=== PATIENT | female | born 1940 | race Caucasian/White ===

== ENCOUNTER 2021-05-07 11:21 | Emergency (ER) | payer OTHER ==
--- OUTSIDE RECORDS SUMMARY | 2021-05-07 11:24 | XMS REPORT | Continuity of Care Document ---
:1940 Author Organization [facility] t Address [address] [place] [address] Care Team Providers Name Role Phone Unavailable Unavailable Unavailable Problems This patient has no known problems. Allergies, Adverse Reactions, Alerts This patient has no known allergies or adverse reactions. Medications Ordered Filled Start Stop Current Ordering Indication Dosage Frequency Signature Comments Components Source Medication Medication Date Date Medication? Clinician (SIG) Name Name Prozac Prozac 2019-0 Yes Gisel [address] [facility] 7-22 [facility] - [facility] Calcium 600 Calcium 600 Yes Gisel [address] [facility] + D + D Millender with a [facility] - meal [facility] Multivitami Multivitami Yes Gisel [address] [facility] n n [facility] Immunizations Ordered Filled Immunization Date Status Comments Sourc e Immunization Name Name FLUZONE HIGH DOSE FLUZONE HIGH DOSE 2019-05-[address] [facility] - [facility] OVER [facility] 00:00:00 [facility] Procedures This patient has no known procedures. Encounters Start End Encounter Admission Attending Care Care Encounter Source Date/Time Date/Time Type Type Clinicians Facility Department ID 2021-04-19 2021-04-19 Outpatient [facility] [id number] [facility] 2021-04-14 2021-04-14 [facility] [id number] [facility] 2021-04-13 2021-04-13 [facility] [id number] [facility] 2020-12-02 2020-12-02 [facility] [id number] [facility] 2020-12-02 2020-12-02 [facility] [id number] [facility] 2020-07-28 2020-07-28 [facility] [id number] [facility] 2020-07-08 2020-07-08 [facility] [id number] [facility] 2020-06-24 2020-06-24 [facility] [id number] [facility] 2020-06-23 2020-06-23 [facility] [id number] [facility] 2020-06-23 2020-06-23 [facility] [id number] [facility] 2020-06-02 2020-06-02 [facility] [id number] [facility] 2020-05-24 2020-05-24 [facility] [id number] [facility] 2020-05-19 2020-05-19 [facility] [id number] [facility] 2020-05-19 2020-05-19 [facility] [id number] [facility]00 [facility] Outpat[facility] Clinics 2020-03-18 2020-03-18 [facility] [id number] [facility] 01[facility]27:00 01:27:00 [facility] Outpat[facility] ent Clinics 2020-03-17 2020-03-17 [facility] [id number] [facility] 10:00:00 10:00:00 [facility] Medicine Outpat[facility] ent Clinics 2019-12-11 2019-12-11 [facility] [id number] [facility] 10:00[facility]00 10:00:00 [facility] Out[facility] ent Clinics 2019-06-11 2019-06-11 [facility] [id number] [facility] 10:00[facility]00 10:00:00 [facility] Out[facility] Clinics 2019-05-27 2019-05-27 [facility] [id number] [facility] 11:20:00 11:20:00 [facility] Out[facility] Clinics Results This patient has no known results.
--- NOTE | 2021-05-07 12:12 | RAD REPORT ---
EXAM DESCRIPTION: CT - Head Brain Wo Cont - 05/07/2021 11:56 am CLINICAL HISTORY: fall, head injury, left hoahaoism COMPARISON: No comparisons TECHNIQUE: All CT scans are performed using dose optimization technique as appropriate and may inclu de automated exposure control or mA/KV adjustment according to patient size. FINDINGS: No intracranial hemorrhage, hydrocephalus or extra-axial fluid collection.No areas of brai n edema or evidence of midline shift. Chronic small vessel ischemic changes cerebral atrophy. The paranasal sinuses and mastoids are clear. The calvarium is intact. IMPRESSION: No acute intracranial abnormality.
--- NOTE | 2021-05-07 12:16 | EDPHYS ---
Physician Documentation [facility] Name: Wendy Maria Age: 80 yrs Sex: Female : 1940 Arrival Date: 05/07/2021 Time: 11:23 Bed 15 Private MD: ED Physician Dakota Ayala HPI: 05/07 11:27 This 80 yrs old Female presents to ER via Unassigned with complaints of Fall, rn head injury. 11:27 The patient or guardian reports injury, pain, swelling. The complaints affect the left rn judaism. Onset: The symptoms/episode began/occurred just prior to arrival. Associated signs and symptoms: Loss of consciousness: This patient did not experience any loss of consciousness. Pertinent positives: headache, Pertinent negatives: double vision, nausea, neck pain, seizure, shortness of breath, vomiting, weakness in extremities, generalized weakness. Severity of symptoms: At their worst the symptoms were mild, in the emergency department the symptoms have improved. The patient has not experienced similar symptoms in the past. The patient has not recently seen a physician. Patient reports walking in the kitchen today, tripped, struck left side of head on floor, no LOC, no anticoagulation. Denies other injuries. Ambulatory after the fall.. 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 - Social history:: Smoking status: Patient denies any tobacco usage or history of. - Family history:: not pertinent. - Hospitalizations: : No recent hospitalization is reported. ROS: 11:27 Constitutional: Negative for fever, chills, and weight loss, Eyes: Negative for injury, rn pain, redness, and discharge, ENT: Negative for injury, pain, and discharge, Neck: Negative for injury, pain, and swelling, Cardiovascular: Negative for chest pain, palpitations, and edema, Respiratory: Negative for shortness of breath, cough, wheezing, and pleuritic chest pain, Abdomen/GI: Negative for abdominal pain, nausea, vomiting, diarrhea, and constipation, Back: Negative for injury and pain, : Negative for injury, bleeding, discharge, and swelling, MS/Extremity: Negative for injury and deformity, Skin: Positive for bruising to left judaism Neuro: Positive for headache 11:27 All other systems are negative. Exam: 11:27 Constitutional: This is a well developed, well nourished patient who is awake, alert, rn and in no acute distress. Head/Face: Normocephalic, ecchymosis and mild tenderness over left judaism. No laceration. No skull depression noted. Eyes: Periorbital areas with no swelling, redness, or edema. Neck: No midline tenderness, full range of motion. Chest/axilla: Normal chest wall appearance and motion. Nontender with no deformity. Cardiovascular: Regular rate and rhythm. No pulse deficits. Respiratory: Speaking full sentences, unlabored. No increased work of breathing, no retractions or nasal flaring. Abdomen/GI: Soft, non-tender Back: No spinal tenderness. Skin: Warm, dry with normal turgor. Normal color with no rashes, no lesions, and no evidence of cellulitis. MS/ Extremity: Pulses equal, no cyanosis. Neurovascular intact. Full, normal range of motion. Equal circumference. Neuro: Awake and alert, GCS 15, oriented to person, place, time, and situation. Cranial nerves II-XII grossly intact. Motor strength 5/5 in all extremities. Sensory grossly intact. Ambulatory from EMS stretcher into ER stretcher. Vital Signs: 11:27 Pain 3/10; ss 11:29 BP 150 / 81; Pulse 71; Resp 16; Temp 98.1(TE); Pulse Ox 98% ; Pain 3/10; ss [place] Coma Score: 11:27 Eye Response: spontaneous(4). Verbal Response: oriented(5). Motor Response: obeys rn commands(6). Total: 15. 12:14 Eye Response: spontaneous(4). Verbal Response: oriented(5). Motor Response: obeys rn commands(6). Total: 15. MDM: 11:23 Patient medically screened. rn 12:14 Differential diagnosis: Contusion of Hematoma on Intracranial bleed- Concussion rn cerebral contusion. Data reviewed: vital signs, nurses notes, radiologic studies, CT scan, and as a result, I will discharge patient. Counseling: I had a detailed discussion with the patient and/or guardian regarding: the historical points, exam findings, and any diagnostic results supporting the discharge/admit diagnosis, radiology results, the need for outpatient follow up, to return to the emergency department if symptoms worsen or persist or if there are any questions or concerns that arise at home. Special discussion: Based on the patient's history, exam and DX evaluation, there is no indication for emergent intervention or inpatient [place]. It is understood by the patient/guardian that if the SXs persist or worsen they need to return immediately for re-evaluation. I discussed with the patient/guardian in detail that at this point there is no indication for admission to the hospital. It is understood, however, that if the symptoms persist or worsen the patient needs to return immediately for re-evaluation. ED course: No acute findings on CT head. Stable vitals. Normal exam. Will DC home and family's care.. 05/07 11:24 Order name: CT Head Brain wo Cont; Complete Time: 12:14 rn Administered Medications: No medications were administered Disposition Summary: 05/07/21 12:15 Discharge Ordered Location: Home rn Problem: new rn Symptoms: have improved rn Condition: Stable rn Diagnosis - Unspecified injury of head, initial encounter rn Followup: rn - With: Private Physician - When: As needed - Reason: Recheck today's complaints, Re-evaluation by your physician Discharge Instructions: - Discharge Summary Sheet rn - Head Injury, Adult rn Forms: - Medication Reconciliation Form rn - Thank You Letter rn - Antibiotic yarn packer - Prescription Opioid Use rn Signatures: Dispatcher [employer] Dakota Whitney MD MD rn Smirch, Shelby, RN RN
--- NOTE | 2021-05-07 12:16 | ER ---
Nurse's Notes [facility] Name: Wendy Maria Age: 80 yrs Sex: Female : 1940 Arrival Date: 05/07/2021 Time: 11:23 Bed 15 Private MD: Diagnosis: Unspecified injury of head, initial encounter Presentation: 05/07 11:27 Chief complaint: Patient states: Tripped and fell while walking in the kitchen ss approximately 30 minutes prior to arrival. Small bruised area noted to lateral aspect of L eye. Pt reports minimal pain. Denies LOC. Coronavirus screen: Client denies travel out of the [place] in the last 14 days. Ebola Screen: Patient denies exposure to infectious person. Patient denies travel to an Ebola-affected area in the 21 days before illness onset. Initial Sepsis Screen: Does the patient meet any 2 criteria? No. Patient's initial sepsis screen is negative. Does the patient have a suspected source of infection? No. Patient's initial sepsis screen is negative. Risk Assessment: Do you want to hurt yourself or someone else? Patient reports no desire to harm self or others. Onset of symptoms was May 07, 2021. 11:27 Method Of Arrival: EMS: [facility] ss 11:27 Acuity: RICHARD 4 ss Triage Assessment: 12:30 General: Appears in no apparent distress. Behavior is calm. 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 - Social history:: Smoking status: Patient denies any tobacco usage or history of. - Family history:: not pertinent. - Hospitalizations: : No recent hospitalization is reported. Screenin:00 Abuse screen: Denies threats or abuse. Denies injuries from another. Nutritional zb screening: No deficits noted. Tuberculosis screening: No symptoms or risk factors identified. Fall Risk Fall in past 12 months (25 points). Secondary diagnosis (15 points) impaired mobility, No IV (0 pts). Ambulatory Aid- None/Bed Rest/Nurse Assist (0 pts). Gait- Normal/Bed Rest/Wheelchair (0 pts) Mental Status- Oriented to own ability (0 pts). Total Kellogg Fall Scale indicates Low Risk Score (25-44 pts). Fall prevention measures have been instituted. Side Rails Up X 2 Placed close to Nursing Station Frequent Obs/Assesments occuring Family Present and informed to notify staff if they need to leave bedside As available Patient and Family Educated on Fall Prevention Program and strategies. Assessment: 12:10 General: Appears in no apparent distress. Behavior is calm. Pain: Complains of pain in zb left restoration Pain currently is 1 out of 10 on a pain scale. Quality of pain is described as tender. Neuro: Level of Consciousness is awake, alert, obeys commands, Oriented to person, place, time, situation, Moves all extremities. Full function Gait is unsteady. Cardiovascular: Patient's skin is warm and dry. Respiratory: Airway is patent. Derm: Bruising that is dark purple, on left restoration. Musculoskeletal: Range of motion: intact in all extremities, Swelling present in left restoration. Vital Signs: 11:27 Pain 3/10; ss 11:29 BP 150 / 81; Pulse 71; Resp 16; Temp 98.1(TE); Pulse Ox 98% ; Pain 3/10; ss [place] Coma Score: 11:27 Eye Response: spontaneous(4). Verbal Response: oriented(5). Motor Response: obeys rn commands(6). Total: 15. 12:14 Eye Response: spontaneous(4). Verbal Response: oriented(5). Motor Response: obeys rn commands(6). Total: 15. ED Course: 11:23 Patient arrived in ED. rn 11:23 Dakota Ayala MD is Attending Physician. rn 11:24 Brittney Curry, SHERI is Primary Nurse. ll1 11:24 Arm band placed on Patient placed in an exam room, on a stretcher. ll1 11:28 Triage completed. ss 11:56 CT Head Brain wo Cont In Process Unspecified. EDMS 12:00 Patient has correct armband on for positive identification. Adult w/ patient. Pulse ox zb on. NIBP on. Door closed. Noise minimized. 12:20 No provider procedures requiring assistance completed. Patient did not have IV access zb during this emergency room visit. Administered Medications: No medications were administered Outcome: 12:15 Discharge ordered by . rn 12:30 Discharged to home via wheelchair, with family. zb 12:30 Condition: stable 12:30 Discharge instructions given to patient, family, Instructed on discharge instructions, follow up and referral plans. Demonstrated understanding of instructions, follow-up care. 12:54 Patient left the ED. ll1 Signatures: Dispatcher [employer] EDMS Dakota Ayala MD MD rn Smirch, Shelby, RN RN Brittney Brumfield RN RN ll1 Toña Cason RN RN zb
[2021-05-07 12:58] VITALS: BP 150/81; TEMP 98.1; O2SAT 98
== END 2021-05-07 12:54 | disposition home or self-care (01) ==
LOC: ER 11:21
DX: S00.83XA Contusion of other part of head, initial encounter (principal); W01.0XXA Fall on same level from slipping, tripping and stumbling without subsequent striking against object, initial encounter
CPT/HCPCS: 70450; 99283

== ENCOUNTER 2021-05-08 21:49 | Emergency (ER) | payer OTHER ==
--- OUTSIDE RECORDS SUMMARY | 2021-05-08 21:52 | XMS REPORT | Continuity of Care Document ---
:1940 Author Organization [facility] t Address [address] [place] [address] Care Team Providers Name Role Phone Unavailable [...] [facility] - 00:00: [facility] 00 [facility] ent Clinics Calcium 600 Calcium 600 Yes Gisel [address] [facility] + D + D Millender with a [facility] - meal [facility]ics Multivitami Multivitami Yes Gisel [address] [facility] n n [facility] Immunizations Ordered Filled Immunization Date Status Comments Sourc e Immunization Name Name FLUZONE HIGH DOSE FLUZONE HIGH DOSE 2019-05-[address] [facility] - [facility] OVER [facility] 00:00:00 [facility] Procedures This patient has no known procedures. Encounters Start End Encounter Admission Attending Care Care Encounter Source Date/Time Date/Time Type Type Clinicians Facility Department ID 2021-04-19 2021-04-19 [facility] [id number] [facility] 2021-04-14 2021-04-14 Out[facility] [id number] [facility] 2021-04-13 2021-04-13 [facility] [id number] [facility] 2020-12-02 2020-12-02 [facility] [id number] [facility] 2020-12-02 2020-12-02 [facility] [id number] [facility] 2020-07-28 2020-07-28 [facility] [id number] [facility] 2020-07-08 2020-07-08 Out[facility] [id number] [facility] 2020-06-24 2020-06-24 [facility] [id number] [facility] 2020-06-23 2020-06-23 [facility] [id number] [facility] 2020-06-23 2020-06-23 [facility] [id number] [facility] 2020-06-02 2020-06-02 [facility] [id number] [facility] 2020-05-24 2020-05-24 [facility] [id number] [facility] 2020-05-19 2020-05-19 [facility] [id number] [facility] 2020-05-19 2020-05-19 [facility] [id number] [facility]00 [facility] Outpat[facility] Clinics 2020-03-18 2020-03-18 [facility] [id number] [facility] 01:27:00 01:27:00 [facility] Outpat[facility] Clinics 2020-03-17 2020-03-17 [facility] [id number] [facility] 10:00:00 10:00:00 [facility] Out[facility] Clinics 2019-12-11 2019-12-11 [facility] [id number] [facility] 10:00:00 10:00:00 [facility] Out[facility] Clinics 2019-06-11 2019-06-11 [facility] [id number] [facility] 10:00:00 10:00:00 [facility] Out[facility] ent Clinics 2019-05-27 2019-05-27 [facility] [id number] [facility] 11:20:00 11:20:00 [facility] Out[facility] ent Clinics Results This patient has no known results.
--- NOTE | 2021-05-08 23:35 | EDPHYS ---
Physician Documentation [facility] Name: Wendy Maria Age: 80 yrs Sex: Female : 1940 Arrival Date: 05/08/2021 Time: 21:58 Bed 26 Private MD: ED Physician Fernie Ferreira HPI: 05/09 05:45 This 80 yrs old Female presents to ER via EMS with complaints of Fall Injury. tw4 05:45 Details of fall: The patient fell from an upright position, while walking. Onset: The tw4 symptoms/episode began/occurred just prior to arrival. Associated injuries: The patient sustained injury to the head. Associated injuries: The patient sustained injury to the head, abrasion, hematoma, laceration, 2 cm(s). Severity of symptoms: At their worst the symptoms were mild, in the emergency department the symptoms are unchanged. The patient has experienced similar episodes in the past, a few times. 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 - Immunization history:: Adult Immunizations up to date. - Social history:: Smoking status: Patient denies any tobacco usage or history of. - Immunization history: Last tetanus immunization: - up to date. ROS: 05/09 05:45 Constitutional: Negative for fever, chills, and weight loss, Eyes: Negative for injury, tw4 pain, redness, and discharge, Cardiovascular: Negative for chest pain, palpitations, and edema, Respiratory: Negative for shortness of breath, cough, wheezing, and pleuritic chest pain, Abdomen/GI: Negative for abdominal pain, nausea, vomiting, diarrhea, and constipation, Back: Negative for injury and pain, MS/Extremity: Negative for injury and deformity, Skin: Negative for injury, rash, and discoloration, Neuro: Negative for headache, weakness, numbness, tingling, and seizure. Exam: 05:45 Constitutional: This is a well developed, well nourished patient who is awake, alert, tw4 and in no acute distress. 05:45 Chest/axilla: Normal chest wall appearance and motion. Nontender with no deformity. No lesions are appreciated. Cardiovascular: Regular rate and rhythm with a normal S1 and S2. No gallops, murmurs, or rubs. Normal PMI, no JVD. No pulse deficits. Respiratory: Lungs have equal breath sounds bilaterally, clear to auscultation and percussion. No rales, rhonchi or wheezes noted. No increased work of breathing, no retractions or nasal flaring. Abdomen/GI: Soft, non-tender, with normal bowel sounds. No distension or tympany. No guarding or rebound. No evidence of tenderness throughout. Back: No spinal tenderness. No costovertebral tenderness. Full range of motion. MS/ Extremity: Pulses equal, no cyanosis. Neurovascular intact. Full, normal range of motion. Neuro: Awake and alert, GCS 15, oriented to person, place, time, and situation. Cranial nerves II-XII grossly intact. Motor strength 5/5 in all extremities. Sensory grossly intact. Cerebellar exam normal. Normal gait. 05:45 Head/face: Noted is a laceration(s), that is linear, 2 cm(s). Vital Signs: 05/08 22:00 BP 152 / 80; Pulse 80; Resp 18; Temp 99.0; Pulse Ox 99% on R/A; Weight 65.77 kg; Height wg 5 ft. 5 in. (165.10 cm); Pain 0/10; 22:30 BP 160 / 85; Pulse 67; Resp 20; Pulse Ox 97% ; kg 22:45 BP 158 / 84; Pulse 67; Resp 20; Pulse Ox 99% on R/A; kg 23:30 BP 158 / 92; Pulse 72; Resp 20; Pulse Ox 99% on R/A; kg 22:00 Body Mass Index 24.13 (65.77 kg, 165.10 cm) Ozark Coma Score: 22:00 Eye Response: spontaneous(4). Verbal Response: confused(4). Motor Response: obeys wg commands(6). Total: 14. 23:00 Eye Response: spontaneous(4). Verbal Response: confused(4). Motor Response: obeys kg commands(6). Total: . 05/09 00:00 Eye Response: spontaneous(4). Verbal Response: confused(4). Motor Response: obeys kg commands(6). Total: 14. Trauma Score (Adult): 05/08 22:00 Eye Response: spontaneous(1); Verbal Response: confused(1); Motor Response: obeys wg commands(2); Systolic BP: > 89 mm Hg(4); Respiratory Rate: 10 to 29 per min(4); Ozark Score: 14; Trauma Score: 12 Laceration: 05/09 05:45 Wound Repair of 2cm ( 0.8in ) subcutaneous laceration to left parietal area. Distal tw4 neuro/vascular/tendon intact. Anesthesia: Local anesthetic administered with 1% lidocaine. Wound prep: Simple cleansing by nurse. Skin closed with 1 1[employer] using simple sutures and sterile technique. Patient tolerated well. MDM: 05/08 23:34 Patient medically screened. tw4 05/09 05:45 Differential diagnosis: abrasion, closed head injury, contusion. Data reviewed: vital tw4 signs, nurses notes. Data interpreted: Pulse oximetry: Interpretation: normal. Counseling: I had a detailed discussion with the patient and/or guardian regarding: the historical points, exam findings, and any diagnostic results supporting the discharge/admit diagnosis. Special discussion: I discussed with the patient/guardian in detail that at this point there is no indication for admission to the hospital. It is understood, however, that if the symptoms persist or worsen the patient needs to return immediately for re-evaluation. 05/08 22:09 Order name: Glucose, Ancillary Testing EDMS 05/08 22:03 Order name: CT Head C Spine tw4 Administered Medications: No medications were administered Disposition Summary: 05/08/21 23:34 Discharge Ordered Location: Home tw4 Problem: new tw4 Symptoms: have improved tw4 Condition: Stable tw4 Diagnosis - Contusion of other part of head tw4 - History of falling tw4 - Repeated falls tw4 Followup: tw4 - With: Private Physician - When: Upon discharge from the Emergency Department - Reason: Recheck today's complaints, Continuance of care, Re-evaluation by your physician Discharge Instructions: - Discharge Summary Sheet tw4 - Contusion tw4 - Facial or Scalp Contusion tw4 - Head Injury, Adult tw4 - Fall Prevention in the Home, Adult tw4 - Understanding Your Risk for Falls tw4 Forms: - Medication Reconciliation Form tw4 - Thank You Letter tw4 - Antibiotic Education tw4 - Prescription Opioid Use tw4 Signatures: Dispatcher [employer] Fernie Basurto MD MD tw4 Paris Giordano, SHERI RN Shawn Paulino RN
--- NOTE | 2021-05-08 23:35 | ER ---
Nurse's Notes [facility] Name: Wendy Maria Age: 80 yrs Sex: Female : 1940 Arrival Date: 05/08/2021 Time: 21:58 Bed 26 Private MD: Diagnosis: Contusion of other part of head;History of falling;Repeated falls Presentation: 05/08 21:59 Chief complaint: Patient states: Per EMS, patient fell while walking at home. States wg she slipped on slippery tile in her socks and suffered a small LAC to the back of her head. Fall was witnessed by and there was no LOC. Pt was seen in the ER yesterday for similar episode and discharged. Pt has a hx of dementia and is pleasantly confused to her baseline. EMS stated patient is not on blood thinners. States bruises to face were old and from yesterday's fall. Pt states she didn't remember falling and is confused to place and time. Care prior to arrival: None. Mechanism of Injury: Fall from standing position. 21:59 Acuity: RICHARD 3 wg 21:59 Method Of Arrival: EMS: [facility] 05/09 00:17 Coronavirus screen: At this time, the client does not indicate any symptoms associated kg with coronavirus-19. Ebola Screen: Patient negative for fever greater than or equal to 101.5 degrees Fahrenheit, and additional compatible Ebola Virus Disease symptoms Patient denies exposure to infectious person. Patient denies travel to an Ebola-affected area in the 21 days before illness onset. Initial Sepsis Screen: Does the patient meet any 2 criteria? No. Patient's initial sepsis screen is negative. Does the patient have a suspected source of infection? No. Patient's initial sepsis screen is negative. Risk Assessment: Do you want to hurt yourself or someone else? Patient reports no desire to harm self or others. Onset of symptoms. 00:19 Trauma event details: Injury occurred in the [facility], Injury occurred: at kg home. Injury occurred: May 08, 2021. 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 - Immunization history:: Adult Immunizations up to date. - Social history:: Smoking status: Patient denies any tobacco usage or history of. - Immunization history: Last tetanus immunization: - up to date. Screenin:49 Abuse screen: Denies threats or abuse. Denies injuries from another. Nutritional kg screening: No deficits noted. Tuberculosis screening: No symptoms or risk factors identified. Fall Risk None identified. Primary Survey: 22:30 NO uncontrolled hemorrhage observed. A: The patient is alert. Airway: patent. kg Breathing/Chest: Respiratory pattern: regular, Respiratory effort: spontaneous, unlabored, Breath sounds: clear, Chest inspection: symmetrical rise and fall of the chest. Circulation: Cardiac rhythm: sinus rhythm. Disability Alert. Exposure/Environment: All clothing and personal items were removed. Forensic evidence collection is not deemed to be indicated at this time. Items placed in patient belonging bag. 23:30 Reassessment Airway Airway Patent Breathing/Chest Respiratory pattern Regular kg Circulation Heart rhythm Sinus rhythm Disability Alert. Assessment: 22:02 General: Appears in no apparent distress. well groomed, Behavior is calm, cooperative. wg Pain: Denies pain. Neuro: Level of Consciousness is alert, confused, Oriented to person, Fruit Worker are equal bilaterally Moves all extremities. Speech is normal, Facial symmetry appears normal, Pupils are PERRLA. 22:03 EENT: No deficits noted. Cardiovascular: No deficits noted. Respiratory: No deficits wg noted. GI: No deficits noted. : No deficits noted. Derm: Wound noted back of scalp. Musculoskeletal: No deficits noted. Injury Description: Laceration sustained to scalp. Vital Signs: 22:00 BP 152 / 80; Pulse 80; Resp 18; Temp 99.0; Pulse Ox 99% on R/A; Weight 65.77 kg; Height 5 ft. 5 in. (165.10 cm); Pain 0/10; 22:30 BP 160 / 85; Pulse 67; Resp 20; Pulse Ox 97% ; kg 22:45 BP 158 / 84; Pulse 67; Resp 20; Pulse Ox 99% on R/A; kg 23:30 BP 158 / 92; Pulse 72; Resp 20; Pulse Ox 99% on R/A; kg 22:00 Body Mass Index 24.13 (65.77 kg, 165.10 cm) wg Rivera Coma Score: 22:00 Eye Response: spontaneous(4). Verbal Response: confused(4). Motor Response: obeys wg commands(6). Total: 14. 23:00 Eye Response: spontaneous(4). Verbal Response: confused(4). Motor Response: obeys kg commands(6). Total: 14. 05/09 00:00 Eye Response: spontaneous(4). Verbal Response: confused(4). Motor Response: obeys kg commands(6). Total: 14. Trauma Score (Adult): 05/08 22:00 Eye Response: spontaneous(1); Verbal Response: confused(1); Motor Response: obeys wg commands(2); Systolic BP: > 89 mm Hg(4); Respiratory Rate: 10 to 29 per min(4); Brew[place] Score: 14; Trauma Score: 12 ED Course: 21:58 Patient arrived in ED. vg1 22:02 Triage completed. wg 22:02 Patient has correct armband on for positive identification. wg 22:03 Fernie Ferreira MD is Attending Physician. tw4 22:10 Arm band placed on right wrist. kg 22:20 Paris Giordano, RN is Primary Nurse. kg 22:20 Thermoregulation: warm blanket given to patient. kg 22:49 CT Head C Spine In Process Unspecified. EDMS 22:49 No provider procedures requiring assistance completed. kg 05/09 00:18 Patient did not have IV access during this emergency room visit. kg 00:18 Patient maintains SpO2 saturation greater than 95% on room air. kg Administered Medications: No medications were administered Intake: 00:18 PO: 0ml; Total: 0ml. kg Output: 00:18 Urine: 0ml; Total: 0ml. kg Outcome: 05/08 23:34 Discharge ordered by . tw4 05/09 00:16 Discharged to home via wheelchair, with family. kg Condition: improved Discharge instructions given to patient, family, Instructed on discharge instructions, follow up and referral plans. Demonstrated understanding of instructions, follow-up care. 00:18 Patient's length of stay was not longer than 2 hours. kg 00:41 Patient left the ED. kg Signatures: Dispatcher [employer] Fernie Basurto MD MD tw4 Barb Maldonado RN RN vg1 Paris Giordano RN RN kg Shawn Maldonado RN wg
[2021-05-09 01:02] VITALS: TEMP 99
[2021-05-09 01:05] VITALS: O2SAT 99
[2021-05-09 01:06] VITALS: BP 158/92
--- NOTE | 2021-05-09 09:11 | RAD REPORT ---
EXAM DESCRIPTION: CT - Head C Spine Mpr Wo Con - 05/09/2021 5:22 am CLINICAL HISTORY: PAIN COMPARISON: 02/28/2020 TECHNIQUE: Axial CT of the head obtained from the skull apex to the skull base without contrast. Axi al CT images of the cervical spine obtained from the skull base through the thoracic inlet. Sagittal and coronal reformatted images available. This exam was performed according to our departmental dose- optimization program, which includes automated exposure control, adjustment of the mA and/or kV accor ding to patient size and/or use of iterative reconstruction technique. FINDINGS: CT head: No acute intracranial hemorrhage identified. No mass, mass effect, shift of the midline, abnormal ext ra-axial fluid collection or CT evidence of acute ischemic change identified. Moderate enlargement of the ventricular system and sulcal spaces compatible with cerebral atrophy. Confluent areas of hypo density throughout the supratentorial white matter are nonspecific and may be related to chronic smal l vessel ischemic change. The visualized paranasal sinuses and the mastoids are clear. Contusion/laceration in the posterior sc alp soft tissues. No skull fracture identified. Visualized orbits and globes are unremarkable. Athe rosclerotic calcification of the intracranial internal carotid arteries. Cervical CT: Alignment of the cervical spine is maintained without evidence of subluxation. The atlantoaxial, at lantodental, and occipitoatlantal intervals are preserved. No fracture identified. Vertebral body h eight preserved. Prevertebral soft tissues are unremarkable. Mild multilevel loss of intervertebral disc height with endplate spondylosis, uncovertebral spurring, and facet arthropathy throughout the cervical spine. Visualized skull base is intact. No fracture of the visualized facial bones. Visualized mastoid air c ells and paranasal sinuses are well aerated. Visualized thyroid is unremarkable. No cervical lymphadenopathy. No pneumothorax in the visualized lung apices. Carotid artery atherosclerosis. IMPRESSION: 1. No acute intracranial abnormality. 2. No acute fracture or subluxation of the cervical spine. 3. Multilevel degenerative change of the cervical spine. Electronically signed by: Jonatan Humphrey 05/08/2021 10:58 PM CDT Due to temporary technical issues with the PACS/Fluency reporting system, reports are being signed by the in house radiologist without review as a courtesy to ensure prompt reporting. The interpreting r adiologist is fully responsible for the content of the report.
== END 2021-05-09 00:41 | disposition home or self-care (01) ==
LOC: ER 21:49
PROC: 0JQ10ZZ Repair Face Subcutaneous Tissue and Fascia, Open Approach (ICD-10-PCS; principal; 2021-05-09)
DX: S01.81XA Laceration without foreign body of other part of head, initial encounter (principal); W19.XXXA Unspecified fall, initial encounter; Y93.01 Activity, walking, marching and hiking; R29.6 Repeated falls; Z91.81 History of falling; G10 Huntington's disease; F02.80 Dementia in other diseases classified elsewhere, unspecified severity, without behavioral disturbance, psychotic disturbance, mood disturbance, and anxiety
CPT/HCPCS: 70450; 72125; 82947; 99284

== ENCOUNTER 2021-12-04 14:56 | Emergency (ER) | payer OTHER ==
--- OUTSIDE RECORDS SUMMARY | 2021-12-04 14:59 | XMS REPORT | Continuity of Care Document ---
:1940 Author Organization [facility] t Address [address] [place] [address] Care Team Providers Name Role Phone Sonia Landin Attending Clinician Unavailable Zena Attending Clinician Unavailable Problems This patient has no known problems. Allergies, Adverse Reactions, Alerts This patient has no known allergies or adverse reactions. Medications Ordered Filled Start Stop Current Ordering Indication Dosage Frequency Signature Comments Components Source Medication Medication Date Date Medication? Clinician (SIG) Name Name Prozac Prozac 2019-0 Yes Gisel [address] [facility]22 [facility]cium 600 Calcium 600 Yes Gisel [address] [facility] + D + D [facility] with a [facility] Multivitami Multivitami Yes Gisel [address] [facility] n [facility] Immunizations Ordered Filled Immunization Date Status Comments Sourc e Immunization Name Name FLUZONE HIGH DOSE FLUZONE HIGH DOSE 2019-05-[address] [facility] OVER [facility]:00 [facility] Procedures This patient has no known procedures. Encounters Start End Encounter Admission Attending Care Care Encounter Source Date/Time Date/Time Type Type Clinicians Facility Department ID 2021-09-[address] [id number] [facility] Jasb[facility] [id number] [facility] 2021-09-21 Outpatient Landin, [facility] [id number] [facility] 13:50:15 Jasbir [id number] [facility] 2021-09-21 Outpatient Landin, [facility] [id number] [facility] 12:46:59 Jasbir [id number] [facility] 2021-09-21 Outpatient Landin, [facility] [id number] [facility] [address] 12:12:17 Jasbir [id number] [facility] 2021-09-21 Outpatient Mushtaq, [facility] [id number] [facility] 12:09:34 Jasbir [id number] [facility] 2021-09-21 [facility] [id number] [address] 12:09:12 Gisel [id number] [facility] 2021-09-21 [facility] [id number] 12:04:46 Gisel [id number] [facility] 2021-09-21 [facility] [id number] 12:00:14 Gisel [id number] [facility] 2021-09-21 [facility] [id number] 11:32:35 Gisel [id number] [facility] 2021-09-15 2021-09-15 amb[facility] [id number] 2021-08-23 2021-08-23 ambulatory [facility] [id number] [facility] 2021-06-01 2021-06-01 [facility] [id number] [facility] 2021-05-31 2021-05-31 [facility] [id number] [facility] 2021-05-17 2021-05-17 Outpatient [facility] [id number] [facility] 2021-05-12 2021-05-12 Outpatient [facility] [id number] [facility] 2021-04-19 2021-04-19 Outpatient [facility] [id number] [facility] 2021-04-14 2021-04-14 Outpatient [facility] [id number] [facility] 2021-04-13 2021-04-13 Outpatient [facility] [id number] [facility] 2020-12-02 2020-12-02 Outpatient [facility] [id number] [facility] 2020-12-02 2020-12-02 Outpatient [facility] [id number] [facility] 2020-07-28 2020-07-28 Outpatient [facility] [id number] [facility] 2020-07-08 2020-07-08 Outpatient [facility] [id number] [facility] 2020-06-24 2020-06-24 Outpatient [facility] [id number] [facility] 2020-06-23 2020-06-23 Outpatient [facility] [id number] [facility] 2020-06-23 2020-06-23 Outpatient [facility] [id number] [facility] 2020-06-02 2020-06-02 Outpatient [facility] [id number] [facility] 2020-05-24 2020-05-24 Outpatient [facility] [id number] [facility] 2020-05-19 2020-05-19 Outpatient [facility] [id number] [facility] 2020-05-19 2020-05-19 Outpatient [facility] [id number] [facility] 2020-03-18 2020-03-18 [facility] [id number] [facility] 01:27:00 01:27:00 [facility] Medicine Outpati ent Clinics 2020-03-17 2020-03-17 [facility] [id number] 10:00:00 10:00:00 [facility] Medicine l Medicine Outpat[facility] ent Clinics 2019-12-11 2019-12-11 [facility] [id number] [facility] 10:00:00 10:00:00 [facility] Medicine l Medicine Outpat[facility] ent Clinics 2019-06-11 2019-06-11 [facility] [id number] 10:00:00 10:00:00 [facility] Medicine l Medicine Outpat[facility] ent Clinics 2019-05-27 2019-05-27 [facility] [id number] 11:20:00 11:20:00 [facility]pat[facility] Clin[facility] Results This patient has no known results.
[2021-12-04] MEDS ORDERED: HYDROCODONE/APAP 5/325 MG TAB ONE (15:29)
--- NOTE | 2021-12-04 16:47 | RAD REPORT ---
EXAM DESCRIPTION: RAD - Clavicle Right - 12/04/2021 4:38 pm CLINICAL HISTORY: PAIN COMPARISON: No comparisons FINDINGS: Mildly comminuted right mid to distal clavicular fracture. There is a greater than 1 full shaft width of displacement. Several fragments are present. No shoulder dislocation. IMPRESSION: Displaced and comminuted right mid to distal clavicle fracture.
--- NOTE | 2021-12-04 16:48 | RAD REPORT ---
EXAM DESCRIPTION: RAD - Shoulder Right 2 View - 12/04/2021 4:38 pm CLINICAL HISTORY: PAIN COMPARISON: No comparisons FINDINGS/IMPRESSION: Right mid to distal clavicle fracture which is displaced and comminuted. No oth er fractures are identified.
--- NOTE | 2021-12-04 17:44 | ER ---
Nurse's Notes [facility] Name: Wendy Maria Age: 81 yrs Sex: Female : 1940 Arrival Date: 12/04/2021 Time: 14:58 Bed DIS6 Private MD: Diagnosis: Displaced and comminuted right mid to distal clavicle fracture Presentation: 12/04 15:09 Chief complaint: Patient states: Fell while going to sit in chair 45 min [employer]. R ll1 shoulder pain since. No head injury or LOC. Coronavirus screen: Vaccine status: Patient reports receiving the 2nd dose of the covid vaccine. Client denies travel out of the [place] in the last 14 days. At this time, the client does not indicate any symptoms associated with coronavirus-19. Ebola Screen: Patient denies travel to an Ebola-affected area in the 21 days before illness onset. Initial Sepsis Screen: Does the patient meet any 2 criteria? No. Patient's initial sepsis screen is negative. Does the patient have a suspected source of infection? Yes: Bone or joint infection. Risk Assessment: Do you want to hurt yourself or someone else? Patient reports no desire to harm self or others. Onset of symptoms was December 04, 2021. 15:09 Method Of Arrival: Wheelchair ll1 15:09 Acuity: RICHARD 4 ll1 Triage Assessment: 15:11 General: Appears uncomfortable, Behavior is calm, cooperative, appropriate for age. ll1 Pain: Complains of pain in R shoulder Quality of pain is described as aching. Musculoskeletal: Reports pain in R shoulder. Injury Description: Bruise. 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 - Social history:: Smoking status: Patient denies any tobacco usage or history of. Screenin:25 Abuse screen: Denies threats or abuse. Denies injuries from another. Nutritional ss screening: No deficits noted. Tuberculosis screening: Never had TB. Fall Risk Fall in past 12 months (25 points). Assessment: 18:25 General: Appears in no apparent distress. uncomfortable, Behavior is cooperative. Pain: ss Complains of pain in anterior aspect of right upper chest, R shoulder Pain currently is 8 out of 10 on a pain scale. Is continuous, Aggravated by increased activity, repositioning. Neuro: Level of Consciousness is awake, alert. Cardiovascular: Capillary refill < 3 seconds is brisk in bilateral Patient's skin is warm and dry. Respiratory: Airway is patent Respiratory effort is even, unlabored, Respiratory pattern is regular, symmetrical. Derm: Skin is intact, is healthy with good turgor, Skin is pink, warm \T\ dry. normal. 18:48 Reassessment: Patient appears in no apparent distress at this time. Patient and/or ss family updated on plan of care and expected duration. Pain level reassessed. Vital Signs: 15:09 BP 112 / 71; Pulse 76; Resp 17; Temp 98.2; Pulse Ox 95% ; Weight 72.57 kg; Height 5 ft. ll1 5 in. (165.10 cm); Pain 10/10; 15:09 Body Mass Index 26.62 (72.57 kg, 165.10 cm) ll1 ED Course: 14:58 Patient arrived in ED. rg4 15:11 Triage completed. ll1 15:11 Arm band placed on. ll1 15:17 Bereket Skaggs NP is PHCP. pm1 15:17 Сергей Ruano MD is Attending Physician. pm1 16:40 Shoulder Right (2 View) XRAY In Process Unspecified. EDMS 16:40 Clavicle Right XRAY In Process Unspecified. EDMS 18:25 Patient has correct armband on for positive identification. Adult w/ patient. ss 18:41 Laureen Bergeron, SHERI is Primary Nurse. ss 18:48 No provider procedures requiring assistance completed. Patient did not have IV access ss during this emergency room visit. Administered Medications: 15:27 Drug: [place] (HYDROcodone-acetaminophen) 5 mg-325 mg 1 tabs {Note: rass 0, pain 10/10.} ll1 Route: PO; 18:46 Follow up: Response: No adverse reaction; Pain is decreased; RASS: Alert and Calm (0) ll1 18:45 Drug: traMADol 25 mg {Note: rass 0.} Route: PO; ll1 18:48 Follow up: Response: No adverse reaction; Medication administered at discharge. Outcome: 17:44 Discharge ordered by . pm1 18:48 Discharged to home via wheelchair. ss 18:48 Condition: good 18:48 Discharge instructions given to patient, family, Instructed on discharge instructions, follow up and referral plans. medication usage, Demonstrated understanding of instructions, follow-up care, medications, Prescriptions given X 1. 18:49 Patient left the ED. ss Signatures: Dispatcher [employer] EDMS Laureen Bergeron RN RN Bereket Skaggs, BARBRA SITE INTERPRETER pm1 Netta Maldonado rg4 Brittney Curry RN RN ll1 Corrections: (The following items were deleted from the chart) 19:26 General: Appears in no apparent distress. uncomfortable, Behavior is cooperative, ss : 19:26 Neuro: Level of Consciousness is awake, alert, [facility] 19:26 Derm: Skin is intact, is healthy with good turgor, Skin is pink, warm \T\ dry. ss normal, ss 19:26 Respiratory: Airway is patent Respiratory effort is even, unlabored, Respiratory ss pattern is regular, symmetrical, ss 19:26 Cardiovascular: Capillary refill < 3 seconds is brisk in bilateral Patient's skin ss is warm and dry. ss : 19:26 Pain: Complains of pain in anterior aspect of right upper chest, R shoulder Pain ss currently is 8 out of 10 on a pain scale. Is continuous, Aggravated by increased activity, repositioning, ss
--- NOTE | 2021-12-04 17:45 | EDPHYS ---
Physician Documentation [facility] Name: Wendy Maria Age: 81 yrs Sex: Female : 1940 Arrival Date: 12/04/2021 Time: 14:58 Bed DIS6 Private MD: ED Physician Сергей Ruano HPI: 12/04 15:23 This 81 yrs old Female presents to ER via Wheelchair with complaints of Fall Injury, pm1 Shoulder Injury. 15:23 Details of fall: The patient fell from an upright position, while standing, and struck pm1 a tile surface. Onset: The symptoms/episode began/occurred today. Associated injuries: The patient sustained right shoulder, painful injury. Severity of symptoms: in the emergency department the symptoms are unchanged. The patient has not experienced similar symptoms in the past. The patient has not recently seen a physician. 15:23 81-year-old patient presents to the ER. Patient was attempting to sit down on a pm1 recliner that had a cloth on the armrest. Patient put her arm on the armrest in she slid off with the clock. Patient landed on her right shoulder and is presenting with pain to that area. No head injury. Patient's fall was witnessed by her granddaughter who was assisting her into the chair. 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 - Social history:: Smoking status: Patient denies any tobacco usage or history of. ROS: 15:23 Constitutional: Negative for fever, chills, and weight loss, Cardiovascular: Negative pm1 for chest pain, palpitations, and edema, Respiratory: Negative for shortness of breath, cough, wheezing, and pleuritic chest pain. 15:23 Skin: Negative for injury, rash, and discoloration, Neuro: Negative for headache, weakness, numbness, tingling, and seizure. 15:23 MS/extremity: Positive for pain, tenderness, of the anterior aspect of right shoulder, Negative for deformity. 15:23 All other systems are negative. Exam: 15:23 Constitutional: This is a well developed, well nourished patient who is awake, alert, pm1 and in no acute distress. Head/Face: Normocephalic, atraumatic. 15:23 Skin: Warm, dry with normal turgor. Normal color with no rashes, no lesions, and no evidence of cellulitis. 15:23 Cardiovascular: Exam negative for Rate: normal, Rhythm: regular, Pulses: no pulse deficits are appreciated. 15:23 Respiratory: Exam negative for acute changes, respiratory distress, shortness of breath. 15:23 Abdomen/GI: Inspection: abdomen appears normal, Palpation: abdomen is soft and non-tender, in all quadrants. 15:23 Musculoskeletal/extremity: Extremities: grossly normal except: noted in the anterior aspect of right shoulder: tenderness, There is no evidence of laceration, puncture, crepitus. 15:23 Neuro: Exam negative for acute changes, Orientation: no acute changes, Mentation: no acute changes, Motor: moves all fours. Vital Signs: 15:09 BP 112 / 71; Pulse 76; Resp 17; Temp 98.2; Pulse Ox 95% ; Weight 72.57 kg; Height 5 ft. ll1 5 in. (165.10 cm); Pain 10/10; 15:09 Body Mass Index 26.62 (72.57 kg, 165.10 cm) ll1 MDM: 15:25 Patient medically screened. pm1 17:41 Data reviewed: vital signs. Data interpreted: Pulse oximetry: on room air is 95 %. pm1 Interpretation: normal. Counseling: I had a detailed discussion with the patient and/or guardian regarding: the historical points, exam findings, and any diagnostic results supporting the discharge/admit diagnosis, radiology results, the need for outpatient follow up, a orthopedic surgeon, to return to the emergency department if symptoms worsen or persist or if there are any questions or concerns that arise at home. 12/04 15:14 Order name: Shoulder Right (2 View) XRAY; Complete Time: 16:53 ll1 12/04 15:23 Order name: Clavicle Right XRAY; Complete Time: 16:53 ll1 12/04 17:44 Order name: Shoulder Immobilizer; Complete Time: 18:41 pm1 Administered Medications: 15:27 Drug: [place] (HYDROcodone-acetaminophen) 5 mg-325 mg 1 tabs {Note: rass 0, pain 10/10.} ll1 Route: PO; 18:46 Follow up: Response: No adverse reaction; Pain is decreased; RASS: Alert and Calm (0) ll1 18:45 Drug: traMADol 25 mg {Note: rass 0.} Route: PO; ll1 18:48 Follow up: Response: No adverse reaction; Medication administered at discharge. Disposition Summary: 12/04/21 17:44 Discharge Ordered Location: Home pm1 Problem: new pm1 Symptoms: have improved pm1 Condition: Stable pm1 Diagnosis - Displaced and comminuted right mid to distal clavicle fracture pm1 Followup: pm1 - With: Emergency Department - When: As needed - Reason: Worsening of condition Followup: pm1 - With: Private Physician - When: 2 - 3 days - Reason: Recheck today's complaints, Continuance of care, Re-evaluation by your physician Discharge Instructions: - Discharge Summary Sheet pm1 - Clavicle Fracture pm1 - How to Use a Shoulder Immobilizer pm1 Forms: - Medication Reconciliation Form pm1 - Thank You Letter pm1 - Antibiotic Education pm1 - Prescription Opioid Use pm1 Prescriptions: - Tramadol 50 mg Oral Tablet - take 1 tablet by ORAL route every 8 hours as needed; 12 tablet; Refills: 0, pm1 Product Selection Permitted Addendum: 12/08/2021 18:36 Co-signature as Attending Physician, Сергей Ruano MD I agree with the assessment and c cheek plan of care. Signatures: Dispatcher [employer] [facility] Сергей Ruano MD MD cha Marinas, Patrick, SCIENTIFIC ADVISOR SCIENTIFIC ADVISOR pm1 Brittney Curry RN RN 1 Laureen Bergeron RN Corrections: (The following items were deleted from the chart) 12/04 17:44 15:23 Sling ordered. ll1 pm1
[2021-12-04] MEDS ORDERED: TRAMADOL HCL 50 MG TAB ONE (18:45)
[2021-12-04 20:23] VITALS: BP 112/71; TEMP 98.2; O2SAT 95
== END 2021-12-04 18:49 | disposition home or self-care (01) ==
LOC: ER 14:56
DX: S42.031A Displaced fracture of lateral end of right clavicle, initial encounter for closed fracture (principal); W18.30XA Fall on same level, unspecified, initial encounter; G10 Huntington's disease; F02.80 Dementia in other diseases classified elsewhere, unspecified severity, without behavioral disturbance, psychotic disturbance, mood disturbance, and anxiety
CPT/HCPCS: 99283

== ENCOUNTER 2024-04-20 08:24 | Inpatient (IN) | payer MEDICARE, OTHER ==
--- OUTSIDE RECORDS SUMMARY | 2024-04-20 08:28 | XMS REPORT | Continuity of Care Document ---
Author Name Unknown Address [address] [facility] [address] [place] [address] [facility] Address [address] [facility] [address] [place] [address] Care Team Providers Care Chicken Tender Name Role Phone Jasbir Landin Attending Clinician Unavailable Gisel Freitas Attending Clinician Unavailable Timmy De La Torre Attending Clinician Ginny Boothe Attending Clinician Ho --Estefania Attending Clinician Payers Payer Name Policy Type Policy Number Effective Date Expirati on Date Source [facility]MEDICARE REPLACEMENT HMO) [id number] 2023 00:00:00 [employer] MEDICARE C1 [id number] Co mmon [facility] AET[employer] MEDICARE C1 [id number] Co [facility] Problems Condition Name Condition Details Condition Category Status Onset Date Resolution Date Last Treatment Date Treating Clinician Comments Source [id number] Closed displaced fracture of shaft of right clavicle, initial encounter Problem [facility] Memory problem Memory problem Problem [facility] [id number] Family history of [place] 's disease Problem [facility] [id number] Skin lesions Problem [facility] Anxiety Anxiety Problem [facility] [id number] Hyperglyce sudhakar Problem [facility] [id number] Urinary incontinen ce, unspecifie d type Problem [facility] [id number] Hyperchole sterolemia Problem [facility] [id number] Diarrhea, unspecifie d type Problem [facility] [id number] Elevated BP without diagnosis of hypertensi on Problem [facility] [id number] Traumatic hematoma of forehead, subsequent encounter Problem [facility] [id number] Frailty Problem [facility] [id number] Counseling and coordinati on of care Problem [facility] 90460922 Glaucoma of both eyes, unspecifie d glaucoma type Problem [facility] 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 Problem [facility] [id number] Family history of atheroscle rosis Problem [facility] [id number] Physical deconditio manohar Problem [facility] 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 Problem [facility] Impairment of balance Balance problem Problem [facility] 591571824 Blurry vision Problem [facility] 823229136 Urinary frequency Problem [facility] History of fall Status post fall Problem [facility] [id number] Behavior concern in adult Problem [facility] Contractur e, other specified joint Contractur e, other specified joint Problem [facility] Social History Social Habit Start Date Stop Date Quantity Comments Source History of Tobacco Use [facility] Sex Assigned At [facility] Smoking Status Start Date Stop Date Source Never Smoker [facility] Medications Ordered Medication Name Filled Medication Name Start Date Stop Date Current Medication? Ordering Clinician Indication Dosage Frequency Signature (SIG) Comments Components Source Polytrim 62947-5.1 UNIT/ML Polytrim 38749-5.1 UNIT/ML 8-14 00:00: 00 No 1{drop_ into_af fected_ eye} QID Polytrim 30831-1.1 UNIT/ML Diflucan 150 MG Diflucan 150 MG 6-21 00:00: 00 No Diflucan 150 MG Macrobid 100 MG Macrobid 100 MG 9-30 00:00: 00 06-05 00:00 :00 No 1{capsu le_with _food} BID Macrobid 100 MG clonazePAM 0.125 MG clonazePAM 0.125 MG No 1{table t_as_ne eded} QID clonazePAM 0.125 MG FLUoxetine HCl 20 MG FLUoxetine HCl 20 MG No FLUoxetine HCl 20 MG PROzac 20 MG PROzac 20 MG No 1{capsu le} BID PROzac 20 MG QUEtiapine Fumarate 25 MG QUEtiapine Fumarate 25 MG No BID QUEtiapine Fumarate 25 MG Immunizations Ordered Immunization Name Filled Immunization Name Date Status Comments Source FLUZONE HIGH DOSE OVER 65 FLUZONE HIGH DOSE OVER 65 2022-05-30 16:21:00 Completed [facility] FLUZONE HIGH DOSE OVER 65 FLUZONE HIGH DOSE OVER 65 2022-05-30 16:21:00 Completed [facility] FLUZONE HIGH DOSE OVER 65 FLUZONE HIGH DOSE OVER 65 2022-05-30 16:21:00 Completed [facility] FLUZONE HIGH DOSE OVER 65 FLUZONE HIGH DOSE OVER 65 2022-05-30 16:21:00 Completed [facility] FluAD FluAD 2021-06-01 11:18:00 Completed [facility] FluAD FluAD 2021-06-01 11:18:00 Completed [facility] FluAD FluAD 2021-06-01 11:18:00 Completed [facility] FluAD FluAD 2021-06-01 11:18:00 Completed [facility] FluAD FluAD 2021-06-01 11:18:00 Completed [facility] FluAD FluAD 2021-06-01 11:18:00 Completed [facility] FluAD FluAD 2021-06-01 11:18:00 Completed [facility] FluAD FluAD 2021-06-01 11:18:00 Completed [facility] FluAD FluAD 2021-06-01 11:18:00 Completed [facility] FluAD FluAD 2021-06-01 11:18:00 Completed [facility] FluAD FluAD 2021-06-01 11:18:00 Completed [facility] FluAD FluAD 2021-06-01 11:18:00 Completed [facility] FluAD FluAD 2021-06-01 11:18:00 Completed [facility] FluAD FluAD 2021-06-01 11:18:00 Completed [facility] FLUZONE HIGH DOSE OVER 65 FLUZONE HIGH DOSE OVER 65 2020-05-19 14:40:00 Completed [facility] FLUZONE HIGH DOSE OVER 65 FLUZONE HIGH DOSE OVER 65 2020-05-19 14:40:00 Completed [facility] FLUZONE HIGH DOSE OVER 65 FLUZONE HIGH DOSE OVER 65 2020-05-19 14:40:00 Completed [facility] FLUZONE HIGH DOSE OVER 65 FLUZONE HIGH DOSE OVER 65 2020-05-19 14:40:00 Completed [facility] FLUZONE HIGH DOSE OVER 65 FLUZONE HIGH DOSE OVER 65 2020-05-19 14:40:00 Completed [facility] FLUZONE HIGH DOSE OVER 65 FLUZONE HIGH DOSE OVER 65 2020-05-19 14:40:00 Completed [facility] FLUZONE HIGH DOSE OVER 65 FLUZONE HIGH DOSE OVER 65 2020-05-19 14:40:00 Completed [facility] FLUZONE HIGH DOSE OVER 65 FLUZONE HIGH DOSE OVER 65 2020-05-19 14:40:00 Completed [facility] FLUZONE HIGH DOSE OVER 65 FLUZONE HIGH DOSE OVER 65 2020-05-19 14:40:00 Completed [facility] FLUZONE HIGH DOSE OVER 65 FLUZONE HIGH DOSE OVER 65 2020-05-19 14:40:00 Completed [facility] FLUZONE HIGH DOSE OVER 65 FLUZONE HIGH DOSE OVER 65 2020-05-19 14:40:00 Completed [facility] FLUZONE HIGH DOSE OVER 65 FLUZONE HIGH DOSE OVER 65 2020-05-19 14:40:00 Completed [facility] FLUZONE HIGH DOSE OVER 65 FLUZONE HIGH DOSE OVER 65 2020-05-19 14:40:00 Completed [facility] FLUZONE HIGH DOSE OVER 65 FLUZONE HIGH DOSE OVER 65 2020-05-19 14:40:00 Completed [facility] FLUZONE HIGH DOSE OVER 65 FLUZONE HIGH DOSE OVER 65 2020-05-19 14:40:00 Completed [facility] FLUZONE HIGH DOSE OVER 65 FLUZONE HIGH DOSE OVER 65 2019-05-27 16:35:00 Completed [facility] FLUZONE HIGH DOSE OVER 65 FLUZONE HIGH DOSE OVER 65 2019-05-27 16:35:00 Completed [facility] FLUZONE HIGH DOSE OVER 65 FLUZONE HIGH DOSE OVER 65 2019-05-27 16:35:00 Completed [facility] FLUZONE HIGH DOSE OVER 65 FLUZONE HIGH DOSE OVER 65 2019-05-27 16:35:00 Completed [facility] FLUZONE HIGH DOSE OVER 65 FLUZONE HIGH DOSE OVER 65 2019-05-27 16:35:00 Completed [facility] FLUZONE HIGH DOSE OVER 65 FLUZONE HIGH DOSE OVER 65 2019-05-27 16:35:00 Completed [facility] FLUZONE HIGH DOSE OVER 65 FLUZONE HIGH DOSE OVER 65 2019-05-27 16:35:00 Completed [facility] FLUZONE HIGH DOSE OVER 65 FLUZONE HIGH DOSE OVER 65 2019-05-27 16:35:00 Completed [facility] FLUZONE HIGH DOSE OVER 65 FLUZONE HIGH DOSE OVER 65 2019-05-27 16:35:00 Completed [facility] FLUZONE HIGH DOSE OVER 65 FLUZONE HIGH DOSE OVER 65 2019-05-27 16:35:00 Completed [facility] FLUZONE HIGH DOSE OVER 65 FLUZONE HIGH DOSE OVER 65 2019-05-27 16:35:00 Completed [facility] FLUZONE HIGH DOSE OVER 65 FLUZONE HIGH DOSE OVER 65 2019-05-27 16:35:00 Completed [facility] FLUZONE HIGH DOSE OVER 65 FLUZONE HIGH DOSE OVER 65 2019-05-27 16:35:00 Completed [facility] FLUZONE HIGH DOSE OVER 65 FLUZONE HIGH DOSE OVER 65 2019-05-27 16:35:00 Completed [facility] FLUZONE HIGH DOSE OVER 65 FLUZONE HIGH DOSE OVER 65 2019-05-27 16:35:00 Completed [facility] FLUZONE HIGH DOSE OVER 65 FLUZONE HIGH DOSE OVER 65 2019-05-27 00:00:00 Completed [facility] FluAD FluAD Unknown Completed [facility] FLUZONE HIGH DOSE OVER 65 FLUZONE HIGH DOSE OVER 65 Unknown Completed [facility] FLUZONE HIGH DOSE OVER 65 FLUZONE HIGH DOSE OVER 65 Unknown Completed [facility] FLUZONE HIGH DOSE OVER 65 FLUZONE HIGH DOSE OVER 65 Unknown Completed [facility] FluAD FluAD Unknown Completed [facility] FLUZONE HIGH DOSE OVER 65 FLUZONE HIGH DOSE OVER 65 Unknown Completed [facility] FLUZONE HIGH DOSE OVER 65 FLUZONE HIGH DOSE OVER 65 Unknown Completed [facility] FLUZONE HIGH DOSE OVER 65 FLUZONE HIGH DOSE OVER 65 Unknown Completed [facility] FluAD FluAD Unknown Completed [facility] FLUZONE HIGH DOSE OVER 65 FLUZONE HIGH DOSE OVER 65 Unknown Completed [facility] FLUZONE HIGH DOSE OVER 65 FLUZONE HIGH DOSE OVER 65 Unknown Completed [facility] FLUZONE HIGH DOSE OVER 65 FLUZONE HIGH DOSE OVER 65 Unknown Completed [facility] FluAD FluAD Unknown Completed [facility] FLUZONE HIGH DOSE OVER 65 FLUZONE HIGH DOSE OVER 65 Unknown Completed [facility] FLUZONE HIGH DOSE OVER 65 FLUZONE HIGH DOSE OVER 65 Unknown Completed [facility] FLUZONE HIGH DOSE OVER 65 FLUZONE HIGH DOSE OVER 65 Unknown Completed [facility] FluAD FluAD Unknown Completed [facility] FLUZONE HIGH DOSE OVER 65 FLUZONE HIGH DOSE OVER 65 Unknown Completed [facility] FLUZONE HIGH DOSE OVER 65 FLUZONE HIGH DOSE OVER 65 Unknown Completed [facility] FLUZONE HIGH DOSE OVER 65 FLUZONE HIGH DOSE OVER 65 Unknown Completed [facility] FluAD FluAD Unknown Completed [facility] FLUZONE HIGH DOSE OVER 65 FLUZONE HIGH DOSE OVER 65 Unknown Completed [facility] FLUZONE HIGH DOSE OVER 65 FLUZONE HIGH DOSE OVER 65 Unknown Completed [facility] FLUZONE HIGH DOSE OVER 65 FLUZONE HIGH DOSE OVER 65 Unknown Completed [facility] FluAD FluAD Unknown Completed [facility] FLUZONE HIGH DOSE OVER 65 FLUZONE HIGH DOSE OVER 65 Unknown Completed [facility] FLUZONE HIGH DOSE OVER 65 FLUZONE HIGH DOSE OVER 65 Unknown Completed [facility] FLUZONE HIGH DOSE OVER 65 FLUZONE HIGH DOSE OVER 65 Unknown Completed [facility] FluAD FluAD Unknown Completed [facility] FLUZONE HIGH DOSE OVER 65 FLUZONE HIGH DOSE OVER 65 Unknown Completed [facility] FLUZONE HIGH DOSE OVER 65 FLUZONE HIGH DOSE OVER 65 Unknown Completed [facility] FLUZONE HIGH DOSE OVER 65 FLUZONE HIGH DOSE OVER 65 Unknown Completed [facility] FluAD FluAD Unknown Completed [facility] FLUZONE HIGH DOSE OVER 65 FLUZONE HIGH DOSE OVER 65 Unknown Completed [facility] FLUZONE HIGH DOSE OVER 65 FLUZONE HIGH DOSE OVER 65 Unknown Completed [facility] FLUZONE HIGH DOSE OVER 65 FLUZONE HIGH DOSE OVER 65 Unknown Completed [facility] FluAD FluAD Unknown Completed [facility] FLUZONE HIGH DOSE OVER 65 FLUZONE HIGH DOSE OVER 65 Unknown Completed [facility] FLUZONE HIGH DOSE OVER 65 FLUZONE HIGH DOSE OVER 65 Unknown Completed [facility] FLUZONE HIGH DOSE OVER 65 FLUZONE HIGH DOSE OVER 65 Unknown Completed [facility] FluAD FluAD Unknown Completed [facility] FLUZONE HIGH DOSE OVER 65 FLUZONE HIGH DOSE OVER 65 Unknown Completed [facility] FLUZONE HIGH DOSE OVER 65 FLUZONE HIGH DOSE OVER 65 Unknown Completed [facility] FLUZONE HIGH DOSE OVER 65 FLUZONE HIGH DOSE OVER 65 Unknown Completed [facility] FluAD FluAD Unknown Completed [facility] FLUZONE HIGH DOSE OVER 65 FLUZONE HIGH DOSE OVER 65 Unknown Completed [facility] FLUZONE HIGH DOSE OVER 65 FLUZONE HIGH DOSE OVER 65 Unknown Completed [facility] FLUZONE HIGH DOSE OVER 65 FLUZONE HIGH DOSE OVER 65 Unknown Completed [facility] FluAD FluAD Unknown Completed [facility] FLUZONE HIGH DOSE OVER 65 FLUZONE HIGH DOSE OVER 65 Unknown Completed [facility] FLUZONE HIGH DOSE OVER 65 FLUZONE HIGH DOSE OVER 65 Unknown Completed [facility] FLUZONE HIGH DOSE OVER 65 FLUZONE HIGH DOSE OVER 65 Unknown Completed [facility] FluAD FluAD Unknown Completed [facility] FLUZONE HIGH DOSE OVER 65 FLUZONE HIGH DOSE OVER 65 Unknown Completed [facility] FLUZONE HIGH DOSE OVER 65 FLUZONE HIGH DOSE OVER 65 Unknown Completed [facility] FLUZONE HIGH DOSE OVER 65 FLUZONE HIGH DOSE OVER 65 Unknown Completed [facility] FluAD FluAD Unknown Completed [facility] FLUZONE HIGH DOSE OVER 65 FLUZONE HIGH DOSE OVER 65 Unknown Completed [facility] FLUZONE HIGH DOSE OVER 65 FLUZONE HIGH DOSE OVER 65 Unknown Completed [facility] FLUZONE HIGH DOSE OVER 65 FLUZONE HIGH DOSE OVER 65 Unknown Completed [facility] FluAD FluAD Unknown Completed [facility] FLUZONE HIGH DOSE OVER 65 FLUZONE HIGH DOSE OVER 65 Unknown Completed [facility] FLUZONE HIGH DOSE OVER 65 FLUZONE HIGH DOSE OVER 65 Unknown Completed [facility] FLUZONE HIGH DOSE OVER 65 FLUZONE HIGH DOSE OVER 65 Unknown Completed [facility] Vital Signs Vital Name Observation Time Observation Value Comments S ource height 2023-12-17 14:10:00 64 [in_i] Commo n [facility] weight 2023-12-17 14:10:00 165 [lb_av] Comm on [facility] bmi 2023-12-17 14:10:00 28.32 kg/m2 Comm on [facility] blood pressure systolic 2023-12-17 14:10:00 124 mm[Hg] [facility] blood pressure diastolic 2023-12-17 14:10:00 70 mm[Hg] [facility] height 2023-12-17 14:20:00 64 [in_i] Commo n [facility] weight 2023-12-17 14:20:00 165 [lb_av] Comm on [facility] bmi 2023-12-17 14:20:00 28.32 kg/m2 Comm on [facility] blood pressure systolic 2023-12-17 14:20:00 124 mm[Hg] [facility] blood pressure diastolic 2023-12-17 14:20:00 70 mm[Hg] [facility] height 2023-06-27 14:20:00 64 [in_i] Commo n [facility] weight 2023-06-27 14:20:00 165 [lb_av] Comm on [facility] bmi 2023-06-27 14:20:00 28.32 kg/m2 Comm on [facility] height 2023-04-09 11:20:00 64.00 [in_i] Com [facility] weight 2023-04-09 11:20:00 165 [lb_av] Comm on [facility] bmi 2023-04-09 11:20:00 28.32 kg/m2 Comm on [facility] height 2022-12-13 13:20:00 64.00 [in_i] Com [facility] weight 2022-12-13 13:20:00 160 [lb_av] Comm on [facility] temperature 2022-12-13 13:20:00 97.5 [degF] Com [facility] bmi 2022-12-13 13:20:00 27.46 kg/m2 Comm on [facility] oximetry 2022-12-13 13:20:00 98 % Commo n [facility] respiratory rate 2022-12-13 13:20:00 16 /min Common [facility] blood pressure systolic 2022-12-13 13:20:00 129 mm[Hg[facility] diastolic 2022-12-13 13:20:00 74 mm[Hg] [facility] height 2022-12-13 14:00:00 64.00 [in_i] Com [facility] weight 2022-12-13 14:00:00 160 [lb_av] Comm on [facility] temperature 2022-12-13 14:00:00 97.5 [degF] Com [facility] bmi 2022-12-13 14:00:00 27.46 kg/m2 Comm on [facility] oximetry 2022-12-13 14:00:00 98 % Commo n [facility] respiratory rate 2022-12-13 14:00:00 16 /min Common [facility] blood pressure systolic 2022-12-13 14:00:00 129 mm[Hg] [facility] blood pressure diastolic 2022-12-13 14:00:00 74 mm[Hg] [facility] height 2022-05-30 16:00:00 64.00 [in_i] Com [facility] weight 2022-05-30 16:00:00 160.0 [lb_av] Co mmon [facility] temperature 2022-05-30 16:00:00 97.2 [degF] Com [facility] bmi 2022-05-30 16:00:00 27.46 kg/m2 Comm on [facility] oximetry 2022-05-30 16:00:00 96 % Commo n [facility] respiratory rate 2022-05-30 16:00:00 16 /min [facility] blood pressure systolic 2022-05-30 16:00:00 124 mm[Hg] [facility] blood pressure diastolic 2022-05-30 16:00:00 70 mm[Hg] [facility] height 2021-12-22 11:30:00 64.00 [in_i] Com [facility] weight 2021-12-22 11:30:00 160.0 [lb_av] Co mmon [facility] temperature 2021-12-22 11:30:00 96.4 [degF] Com [facility] bmi 2021-12-22 11:30:00 27.46 kg/m2 Comm on [facility] oximetry 2021-12-22 11:30:00 95 % Commo n [facility] respiratory rate 2021-12-22 11:30:00 16 /min Common [facility] blood pressure systolic 2021-12-22 11:30:00 105 mm[Hg] [facility] blood pressure diastolic 2021-12-22 11:30:00 59 mm[Hg] [facility] height 2021-12-08 10:45:00 64.00 [in_i] Com [facility] weight 2021-12-08 10:45:00 160 [lb_av] Comm on [facility] bmi 2021-12-08 10:45:00 27.46 kg/m2 Comm on [facility] blood pressure systolic 2021-12-08 10:45:00 121 mm[Hg] [facility] blood pressure diastolic 2021-12-08 10:45:00 73 mm[Hg] [facility] height 2021-12-05 14:20:00 64 [in_i] Commo n [facility] weight 2021-12-05 14:20:00 160 [lb_av] Comm on [facility] bmi 2021-12-05 14:20:00 27.46 kg/m2 Comm on [facility] height 2021-06-01 10:40:00 64.00 [in_i] Com [facility] weight 2021-06-01 10:40:00 164.2 [lb_av] Co mmon [facility] temperature 2021-06-01 10:40:00 97.3 [degF] Com [facility] bmi 2021-06-01 10:40:00 28.18 kg/m2 Comm on [facility] oximetry 2021-06-01 10:40:00 95 % Commo n [facility] respiratory rate 2021-06-01 10:40:00 17 /min [facility] blood pressure systolic 2021-06-01 10:40:00 132 mm[Hg] [facility] blood pressure diastolic 2021-06-01 10:40:00 65 mm[Hg] [facility] Encounters Start Date/Time End Date/Time Encounter Type Admission Type Attending Clinicians Care Facility Care Department Encounter ID Source 2023-12-13 16:01:00 Outpatient Landin, Jasbir [facility] [id number] [facility] 2023-10-10 11:08:01 Outpatient Landin, Jasbir [facility] [id number] [facility] 2023-06-25 09:31:00 Outpatient Landin, Jasbir [facility] [id number] [facility] 2023-06-19 09:24:00 Outpatient Landin, Jasbir [facility] [id number] [facility] 2023-01-09 14:00:01 Outpatient Landin, Jasbir [facility] [id number] [facility] 2021-12-22 12:09:02 Outpatient Landin, Jasbir [facility] [id number] [facility] 2021-12-21 10:20:01 Outpatient Landin, Jasbir [facility] [id number] [facility] 2021-12-12 11:41:01 Outpatient Landin, Jasbir [facility] [id number] [facility] 2021-12-06 10:14:00 Outpatient Landin, Jasbir [facility] [id number] [facility] 2021-12-05 09:31:00 Outpatient Landin, Jasbir [facility] [id number] [facility] 2021-09-21 13:51:01 [facility] [id number] [facility] 2021-09-21 13:50:15 Outpatient Landin[facility] [id number] [facility] 2021-09-21 12:46:59 Outpatient Landin, [facility] [id number] [facility] 2021-09-21 12:12:17 Outpatient Landin, [facility] [id number] [facility] 2021-09-21 12:09:34 Outpatient Landin, [facility] [id number] [facility] 2021-09-21 12:09:12 Outpatient [facility] [id number] [facility] 2021-09-21 12:04:46 Outpatient Gisel [facility]itas [facility] [id number] [facility] 2021-09-21 12:00:14 Outpatient [facility] [id number] [facility] 2021-09-21 11:32:35 [facility] [id number] [facility] 2024-02-19 12:00:00 2024-02-19 12:30:00 Care Coordinati on Non Billable Timmy Hallmankle [id number] [address] [place] [address] 2024-02-01 21:30:00 2024-02-01 22:00:00 Care OnDemand Timmy Hallmankle [id number]. [id number] KE8 [facility] 2024-02-01 00:00:00 2024-02-01 00:00:00 (TEL) ST[facility] ST[facility] [id number] [facility] 2024-01-15 00:00:00 2024-01-15 00:00:00 (TEL) [facility] [id number] [facility] 2024-01-02 00:00:00 2024-01-02 00:00:00 (TEL) [facility] [id number] [facility] 2023-12-26 00:00:00 2023-12-26 00:00:00 (TEL) [facility] [id number] [facility] 2023-12-20 00:00:00 2023-12-20 00:00:00 (WEB) [facility] [id number] [facility] 2023-12-17 00:00:00 2023-12-17 00:00:00 OFFICE VISIT ESTAB PT LEVEL 4 [facility] [id number] [facility] 2023-12-17 00:00:00 2023-12-17 00:00:00 SUB ANNUAL [facility] WELLNESS VISIT [facility] ST[facility] [id number] [facility] 2023-11-14 00:00:00 2023-11-14 00:00:00 (TEL) [facility] [id number] [facility] 2023-11-07 19:00:00 2023-11-07 19:30:00 Palliative Care RN Initial Ginny Boothe [id number] [facility] 2023-11-06 13:30:00 2023-11-06 14:30:00 Initial Yayo Teague [id number]. [id number] [facility] 2023-06-27 00:00:00 2023-06-27 00:00:00 OFFICE VISIT ESTAB PT LEVEL 4 [facility] ST[facility] [id number] [facility] 2023-06-23 00:00:00 2023-06-23 00:00:00 Outpatient DMG DM [id number] [facility] 2023-06-19 00:00:00 2023-06-19 00:00:00 (TEL) STLMLC ST[facility]C [id number] [facility] 2023-05-28 00:00:00 2023-05-28 00:00:00 (TEL) ST[facility] ST[facility] [id number] [facility] 2023-04-09 00:00:00 2023-04-09 00:00:00 OFFICE VISIT ESTAB PT LEVEL 3 [facility] ST[facility] [id number] [facility] 2023-04-07 00:00:00 2023-04-07 00:00:00 (WEB) STLMLC STLMLC [id number] [facility] 2023-02-14 00:00:00 2023-02-14 00:00:00 (WEB) STLMLC ST[facility]MLC [id number] [facility] 2023-01-04 00:00:00 2023-01-04 00:00:00 (TEL) STLMLC STLMLC [id number] [facility] 2022-12-13 00:00:00 2022-12-13 00:00:00 OFFICE VISIT ESTAB PT LEVEL 4 STLMLC STLMLC [id number] [facility] 2022-12-13 00:00:00 2022-12-13 00:00:00 SUB ANNUAL [facility] WELLNESS VISIT STLMLC STLMLC [id number] [facility] 2022-07-21 00:00:00 2022-07-21 00:00:00 (TEL) STLMLC STLMLC [id number] [facility] 2022-07-17 00:00:00 2022-07-17 00:00:00 (TEL) STLMLC STLMLC [id number] [facility] 2022-05-30 00:00:00 2022-05-30 00:00:00 OFFICE VISIT ESTAB PT LEVEL 4 STLMLC STLMLC [id number] [facility] 2022-05-26 00:00:00 2022-05-26 00:00:00 (TEL) STLMLC STLMLC [id number] [facility] 2022-03-21 00:00:00 2022-03-21 00:00:00 (TEL) STLMLC STLMLC [id number] [facility] 2021-12-22 00:00:00 2021-12-22 00:00:00 (WELLNESS) Wellness Visit STLMLC STLMLC [id number] [facility] 2021-12-08 00:00:00 2021-12-08 00:00:00 OFFICE VISIT NEW PT LEVEL 3 STLMLC STLMLC [id number] [facility] 2021-12-07 00:00:00 2021-12-07 00:00:00 (TEL) STLMLC STLMLC [id number] [facility] 2021-12-05 00:00:00 2021-12-05 00:00:00 (TEL) STLMLC STLMLC [id number] [facility] 2021-12-05 00:00:00 2021-12-05 00:00:00 OFFICE VISIT ESTAB PT LEVEL 4 STLMLC STLMLC [id number] [facility] 2021-09-15 00:00:00 2021-09-15 00:00:00 (TEL) STLMLC STLMLC [id number] [facility] 2021-08-23 00:00:00 2021-08-23 00:00:00 (TEL) STLMLC STLMLC [id number] [facility] 2021-06-01 00:00:00 2021-06-01 00:00:00 OFFICE VISIT ESTAB PT LEVEL 4 STLMLC STLMLC [id number] [facility] 2021-05-31 00:00:00 2021-05-31 00:00:00 (TEL) STLMLC STLMLC [id number] [facility] 2021-05-17 00:00:00 2021-05-17 00:00:00 Outpatient STLMLC STLMLC [id number] [facility] 2021-05-12 00:00:00 2021-05-12 00:00:00 Outpatient STLMLC STLMLC [id number] [facility] 2021-04-19 00:00:00 2021-04-19 00:00:00 Outpatient STLMLC STLMLC [id number] [facility] 2021-04-14 00:00:00 2021-04-14 00:00:00 Outpatient STLMLC STLMLC [id number] [facility] 2021-04-13 00:00:00 2021-04-13 00:00:00 Outpatient STLMLC STLMLC [id number] [facility] 2020-12-02 00:00:00 2020-12-02 00:00:00 Outpatient STLMLC STLMLC [id number] [facility] 2020-12-02 00:00:00 2020-12-02 00:00:00 Outpatient STLMLC STLMLC [id number] [facility] 2020-07-28 00:00:00 2020-07-28 00:00:00 Outpatient STLMLC STLMLC [id number] [facility] 2020-07-08 00:00:00 2020-07-08 00:00:00 Outpatient STLMLC STLMLC [id number] [facility] 2020-06-24 00:00:00 2020-06-24 00:00:00 Outpatient STLMLC STLMLC [id number] [facility] 2020-06-23 00:00:00 2020-06-23 00:00:00 Outpatient STLMLC STLMLC [id number] [facility] 2020-06-23 00:00:00 2020-06-23 00:00:00 Outpatient STLMLC STLMLC [id number] [facility] 2020-06-02 00:00:00 2020-06-02 00:00:00 Outpatient STLMLC STLMLC [id number] [facility] 2020-05-24 00:00:00 2020-05-24 00:00:00 Outpatient STLMLC STLMLC [id number] [facility] 2020-05-19 00:00:00 2020-05-19 00:00:00 Outpatient STLMLC STLMLC [id number] [facility] 2020-05-19 00:00:00 2020-05-19 00:00:00 Outpatient STLMLC STLMLC [id number] [facility] 2020-03-18 01:27:00 2020-03-18 01:27:00 [facility] [id number] [facility] 2020-03-17 10:00:00 2020-03-17 10:00:00 [facility] [id number] [facility] 2019-12-11 10:00:00 2019-12-11 10:00:00 [facility] [id number] [facility] 2019-06-11 10:00:00 2019-06-11 10:00:00 [facility] [id number] [facility] 2019-05-27 11:20:00 2019-05-27 11:20:00 [facility] [facility] [id number] [facility] Results Test Description Test Time Test Comments Results Result Co mments Source
[2024-04-20] MEDS ORDERED: NA CHLORIDE 0.9% 1,000 ML ONE (09:44)
[2024-04-20 09:50] LABS: Absolute Eosinophils 0.2 K/uL (0-0.5); Absolute Lymphocytes (CBC) 1.5 K/uL (0.7-4.9); Absolute Monocytes 1.5 K/uL (0.1-1.3); Absolute Neutrophil 7.7 K/uL (1.8-8.0); Basophils % 0.3 % (0-1.3); Eosinophils % 2.2 % (0-4.4); Hematocrit 35.8 % (36.0-45.0); Hemoglobin 11.6 g/dL (12.0-15.0); Lymphocytes % 13.3 % (15.3-44.8); MCH 30.4 pg (27.0-35.0); MCHC 32.3 g/dL (32.0-36.0); MCV 93.9 fL (80-100); MPV 9.3 fL (7.6-11.3); Monocytes % 13.7 % (3.3-12.3); Neutrophils % 70.5 % (41.7-73.7); Platelets 191 thou/uL (152-406); RBC Red Blood Cell Count 3.82 M/uL (3.86-4.86); Red Cell Distribution Width 13.2 % (12.1-15.2)
[2024-04-20 10:16] LABS: Albumin 2.6 g/dL (3.4-5.0); Albumin/Globulin Ratio 0.5 (1.1-1.8); Anion Gap 8.8 mEq/L (5.0-15.0); Globulin 4.8 g/dL (2.3-3.5); Magnesium 2.3 mg/dL (1.6-2.4); Potassium 3.8 mEq/L (3.5-5.1); Protein, Total 7.4 g/dL (6.4-8.2); Troponin High Sensitivity 6.9 pg/mL (<58.9)
[2024-04-20 10:43] LABS: Specific Gravity 1.022 (1.005-1.030); Urine Bilirubin NEGATIVE (Negative); Urine Blood Negative (Negative); Urine Clarity Clear (Clear); Urine Color Yellow (Yellow); Urine Glucose NEGATIVE (Negative); Urine Ketones NEGATIVE (Negative); Urine Microscopic Reflex YN NO UMIC; Urine Nitrite NEGATIVE (Negative); Urine Protein NEGATIVE (Negative); Urine Urobilinogen Normal (Normal)
--- NOTE | 2024-04-20 11:43 | RAD REPORT ---
EXAM DESCRIPTION: CT - Chest Abdomen Pelvis W Cont - 04/20/2024 10:58 am CLINICAL HISTORY: Abdominal distention; pain, SOB, diarrhea COMPARISON: Chest Single View dated 02/08/2016; MRI LUMBAR SPINE W O CON dated 03/02/2015 TECHNIQUE: Thin axial CT images of the chest, abdomen, and pelvis, performed following intravenous a dministration of iodinated contrast. Multiplanar reformats were generated and reviewed. All CT scans are performed using dose optimization technique as appropriate and may include automated exposure control or mA/KV adjustment according to patient size. FINDINGS: Bilateral right and left pulmonary artery emboli straddling the branching points, extendin g into bilateral upper and lower lobe branches, appear to be primarily subocclusive in nature, althou gh breathing motion artifact somewhat limits evaluation. Small bilateral pleural effusions. Underlyin g segmental dependent airspace opacification suggesting atelectasis. No pneumothorax.No intrathoracic adenopathy. The liver, spleen, pancreas, adrenal glands and kidneys are within normal limits, apart from a nonspe cific right adrenal focus of calcification. Status post cholecystectomy. Marked distention of the urinary bladder. No evidence of radiopaque calculi Moderate sliding hiatal hernia. No bowel obstruction, free air, free fluid or abscess. Large stool bu rden in the rectal bulb. No pathologic lymphadenopathy in the abdomen or pelvis. No acute worrisome osseous finding. Mild superior endplate compression deformity at T11, appears to b e chronic, with numerous Schmorl's node formation. Streak artifact resulting from left total hip arth roplasty hardware somewhat limits evaluation of the pelvis. IMPRESSION: Bilateral pulmonary artery emboli, primarily subocclusive, straddling the branching poin ts of the right and left pulmonary arteries. Bilateral small layering pleural effusions and underlying atelectasis. Marked distention of the urinary bladder, without findings to suggest obstruction. Large stool burden in the rectal bulb. Other incidental findings as above. The findings were communicated to Dr Park on 04/20/2024 at 11:36 hours.
--- NOTE | 2024-04-20 12:03 | ER ---
Nurse's Notes [facility] Name: Wendy Maria Age: 83 yrs Sex: Female : 1940 Arrival Date: 04/20/2024 Time: 08:24 Bed 2 Private MD: Diagnosis: Constipation;Abdominal Distention;Bilateral pulmonary emboli Presentation: 04/20 08:35 Chief complaint: EMS states: Pt had diarrhea last week and was taking anti-diarrhea aa5 medications, last BM was Sunday and none since then, today pt was c/o abdominal pain to family. 08:35 Coronavirus screen: At this time, the client does not indicate any symptoms associated aa5 with coronavirus-19. Ebola Screen: No symptoms or risks identified at this time. Initial Sepsis Screen: Does the patient meet any 2 criteria? No. Patient's initial sepsis screen is negative. Does the patient have a suspected source of infection? No. Patient's initial sepsis screen is negative. Risk Assessment: Do you want to hurt yourself or someone else? Unable to obtain. Onset of symptoms was April 20, 2024. 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 - Infectious Disease History:: unknown. - Social history:: Smoking status: unknown. Screenin:49 [facility] ED Fall Risk Assessment (Adult) History of falling in the last 3 months, aa5 including since admission Yes- fall prone (multiple falls) (3 pts) Confusion or Disorientation Yes (5 pts) Intoxicated or Sedated No (0 pts) Impaired Gait Yes (1 pt) Mobility Assist Device Used Yes (1 pt) Altered Elimination Yes (1 pt) Score/Fall Risk Level 3 or more points = High Risk Oriented to surroundings, Maintained a safe environment, Educated pt \T\ family on fall prevention, incl call for assistance when getting out of bed, Assessed \T\ reinforced patient's understanding of fall precautions, Hourly rounding (assess needs \T\ fall precautionary measures) done. Abuse screen: No signs of abuse noted. Nutritional screening: No deficits noted. Tuberculosis screening: No symptoms or risk factors identified. Assessment: 08:35 General: Appears comfortable, Behavior is calm, cooperative. Pain: Unable to use pain aa5 scale. Does not appear to understand pain scale. Neuro: Level of Consciousness is awake, confused, Oriented to person, Pt able to follow some commands. . Speech is slow. . Facial symmetry appears normal. Cardiovascular: Heart tones S1 S2 present Rhythm is sinus rhythm. Respiratory: Airway is patent Respiratory effort is even, unlabored, Respiratory pattern is regular, symmetrical. GI: Abdomen is distended, Moderate sized BM, soft brown stool noted, pt cleaned and clean brief applied. Bowel sounds present X 4 quads. Abd is rigid X 4 quads. : brief noted. EENT: No signs and/or symptoms were reported regarding the EENT system. Derm: Skin is pink, warm \T\ dry. Musculoskeletal: Pt is non-ambulatory. 13:11 Reassessment: Patient appears in no apparent distress at this time. No changes from cm10 previously documented assessment. Patient and/or family updated on plan of care and expected duration. Pain level reassessed. 14:10 Reassessment: Patient appears in no apparent distress at this time. No changes from kj2 previously documented assessment. Patient and/or family updated on plan of care and expected duration. Pain level reassessed. Patient is alert, oriented x 3, equal unlabored respirations, skin warm/dry/pink. Vital Signs: 08:35 BP 127 / 73; Pulse 93; Resp 16 S; Temp 97.8(A); Pulse Ox 93% on R/A; aa5 09:40 BP 130 / 76; Pulse 93; Resp 15 S; Pulse Ox 93% on R/A; aa5 10:00 BP 121 / 65; Pulse 89; Resp 20; Pulse Ox 92% ; kj2 10:20 BP 141 / 78; Pulse 92; Resp 18; Pulse Ox 94% ; kj2 11:36 Weight 74.5 kg; cm10 11:40 BP 140 / 77; Pulse 90; Resp 19; Pulse Ox 98% on 2 lpm NC; kj2 12:00 BP 135 / 68; Pulse 89; Resp 22; Pulse Ox 95% on 2 lpm NC; kj2 12:30 BP 133 / 72; Pulse 84; Resp 18; Pulse Ox 95% ; kj2 13:00 BP 143 / 84; Pulse 86; Resp 18; Pulse Ox 93% ; kj2 14:00 BP 137 / 85; Pulse 87; Resp 19; Pulse Ox 99% on 2 lpm NC; kj2 ED Course: 08:32 Patient arrived in ED. eb 08:33 Mita Park MD is Attending Physician. sd2 08:35 Josefa Back, RN is Primary Nurse. aa5 08:35 Arm band placed on. aa5 08:35 Patient has correct armband on for positive identification. Placed in gown. Bed in low aa5 position. Call light in reach. Side rails up X2. Client placed on continuous cardiac and pulse oximetry monitoring. NIBP monitoring applied. bus monitor on. Pulse ox on. NIBP on. 08:38 Triage completed. aa5 09:43 Initial lab(s) drawn, by me, sent to lab. Inserted saline lock: 20 gauge in right aa5 wrist, using aseptic technique. Blood collected. Flushed with 10 mL NS. 10:00 Report given to SHERI Sosa. aa5 10:26 Urine collected: straight cath specimen, tea colored, Amount Returned: 600mL. cm10 10:26 Straight cath inserted, using sterile technique, 14 Fr. Returned hailey urine. Patient cm10 tolerated well. 10:28 Urinalysis w/ reflexes Sent. cm10 11:00 Chest Abdomen Pelvis W Cont In Process Unspecified. EDMS 11:48 Inserted saline lock: 22 gauge in left forearm, using aseptic technique. Flushed with cm10 10 mL NS. 12:02 Alex Murphy is Hospitalizing Provider. sd2 13:36 Report faxed to 2nd floor at 1333. Susan confirmed received at 1334. cm10 14:11 No provider procedures requiring assistance completed. Patient admitted, IV remains in cm10 place. 14:12 Provided Education on: need for admit.. cm10 Administered Medications: 09:48 Drug: NS 0.9% IV 1000 ml IV at 1 bolus Per protocol; 1000 mL bolus Route: IV; Rate: 1 aa5 bolus; Site: right wrist; 11:36 Follow up: Response: No adverse reaction; IV Status: Completed infusion; IV Intake: cm10 1000ml 12:22 Drug: Heparin (DVT/PE- Bolus per protocol) - HEParin IVP 80 units/kg IVP once; Max cm10 8,000 units {Co-Signature: kc6 (Sabra Zamora RN).} Route: IVP; Site: left forearm; 13:08 Follow up: Response: No adverse reaction cm10 12:22 Drug: Heparin (DVT/PE Drip) 18 units/kg/[place] - ([place] [address] units, D5W IV 500 ml) IV cm10 at calculated rate Per protocol; Max initial rate 1800 units/hr {Co-Signature: kc6 (Sabra Zamora RN).} Route: IV; Rate: calculated rate; Site: left forearm; 14:11 Follow up: Response: No adverse reaction; IV Status: Infusion continued upon admission cm10 Medication: 08:50 VIS not applicable for this client. aa5 Intake: 11:36 IV: 1000ml; Total: 1000ml. cm10 Outcome: 12:03 Decision to Hospitalize by Provider. sd2 14:11 Admitted to Med/surg accompanied by nurse, via stretcher, room 208, with oxygen, cm10 14:11 Condition: good 14:11 Instructed on the need for admit, 14:12 Patient left the ED. cm10 Signatures: Dispatcher [employer] EDMS Josefa Back, RN RN aa5 Evelin Byrnes Stephanie, MD MD sd2 Brenda Mackey RN RN cm10 Sheila Ren RN RN kj2 Sabra Zamora RN kc6
--- NOTE | 2024-04-20 12:03 | EDPHYS ---
Physician Documentation [facility] Name: Wendy Maria Age: 83 yrs Sex: Female : 1940 Arrival Date: 04/20/2024 Time: 08:24 Bed 2 Private MD: ED Physician Mita Park HPI: 04/20 10:24 This 83 yrs old Female presents to ER via EMS with complaints of Abdominal Pain. 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 Family at bedside provides history and reports that the patient started earlier last week with diarrhea and they then gave Imodium which slowed it down by the next day. The patient has had continued constipation and has not been eating and drinking well since then. They report that the patient's abdomen has been distended and firm especially on the right side. They also report that the patient is now starting to have some retractions with her breathing that they noted in her neck area which she did not have previously. They also report the patient was crying out in pain for unknown reason this morning.. 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 - Infectious Disease History:: unknown. - Social history:: Smoking status: unknown. ROS: 10:24 Constitutional: Negative for fever, chills, and weight loss, Cardiovascular: Negative sd2 for chest pain, palpitations, and edema, Respiratory: Positive for shortness of breath, Negative for cough, wheezing. 10:24 MS/Extremity: Negative for injury and deformity, Skin: Negative for injury, rash, and discoloration, 10:24 Abdomen/GI: Positive for abdominal pain, nausea, diarrhea, constipation, Negative for Exam: 10:24 Constitutional: This is a well developed, well nourished patient who is awake, alert, sd2 and in no acute distress. Head/Face: Normocephalic, atraumatic. Eyes: EOMI, normal conjunctiva bilaterally Chest/axilla: Normal chest wall appearance and motion. Nontender with no deformity. Cardiovascular: Regular rate and rhythm with a normal S1 and S2. No gallops, murmurs, or rubs. 2+ distal pulses. Respiratory: Lungs have equal breath sounds bilaterally, clear to auscultation and percussion. No rales, rhonchi or wheezes noted. Suprasternal retractions noted. mild Abdomen/GI: Soft but with moderate distention, no noted TTP at this time Skin: Warm, dry with normal turgor. Normal color with no rashes, no lesions, and no evidence of cellulitis. MS/ Extremity: Pulses equal, no cyanosis. Neurovascular intact. Full, normal range of motion. 10:24 ECG was reviewed by the Attending Physician. NSR, rate 93, no STEMI criteria sd2 Vital Signs: 08:35 BP 127 / 73; Pulse 93; Resp 16 S; Temp 97.8(A); Pulse Ox 93% on R/A; aa5 09:40 BP 130 / 76; Pulse 93; Resp 15 S; Pulse Ox 93% on R/A; aa5 10:00 BP 121 / 65; Pulse 89; Resp 20; Pulse Ox 92% ; kj2 10:20 BP 141 / 78; Pulse 92; Resp 18; Pulse Ox 94% ; kj2 11:36 Weight 74.5 kg; cm10 11:40 BP 140 / 77; Pulse 90; Resp 19; Pulse Ox 98% on 2 lpm NC; kj2 12:00 BP 135 / 68; Pulse 89; Resp 22; Pulse Ox 95% on 2 lpm NC; kj2 12:30 BP 133 / 72; Pulse 84; Resp 18; Pulse Ox 95% ; kj2 13:00 BP 143 / 84; Pulse 86; Resp 18; Pulse Ox 93% ; kj2 14:00 BP 137 / 85; Pulse 87; Resp 19; Pulse Ox 99% on 2 lpm NC; kj2 MDM: 08:33 Patient medically screened. sd2 12:01 Differential Diagnosis PE, PNA, UTI, constipation among ohters. Data reviewed: vital sd2 signs, nurses notes, EMS record, lab test result(s), EKG, radiologic studies. Management of patient was discussed with the following: Hospitalist: Dr. Murphy and Eviat Lane NP. I considered the following discharge prescriptions or medication management in the emergency department Medications were administered in the Emergency Department. See MAR. Historians other than the Patient: Daughter/Son: Daughter at . 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 Counseling: I had a detailed discussion with the patient and/or guardian regarding the historical points, exam findings, and any diagnostic results supporting the discharge/admit diagnosis, lab results, radiology results, the need for further work-up and treatment in the hospital. 04/20 09:31 Order name: CBC with Diff; Complete Time: 10:49 sd2 04/20 09:31 Order name: CMP; Complete Time: 10:49 sd2 04/20 09:31 Order name: Magnesium; Complete Time: 10:49 sd2 04/20 09:31 Order name: Troponin High Sensitivity; Complete Time: 10:49 sd2 04/20 09:31 Order name: BNP; Complete Time: 10:49 sd2 04/20 09:31 Order name: Urinalysis w/ reflexes; Complete Time: 10:49 sd2 04/20 11:52 Order name: Ptt, Activated; Complete Time: 12:54 cm10 04/20 12:20 Order name: Protime (+INR); Complete Time: 12:54 EDMS 04/20 13:25 Order name: Basic Metabolic Panel EDMS 04/20 13:25 Order name: Basic Metabolic Panel EDMS 04/20 13:25 Order name: Basic Metabolic Panel EDMS 04/20 13:25 Order name: Basic Metabolic Panel EDMS 04/20 13:25 Order name: Basic Metabolic Panel EDMS 04/20 13:25 Order name: Basic Metabolic Panel EDMS 04/20 13:25 Order name: Magnesium EDMS 04/20 13:25 Order name: Magnesium EDMS 04/20 13:25 Order name: Magnesium EDMS 04/20 13:25 Order name: Magnesium EDMS 04/20 13:25 Order name: Magnesium EDMS 04/20 13:25 Order name: Magnesium EDMS 04/20 13:25 Order name: Phosphorus EDMS 04/20 13:25 Order name: Phosphorus EDMS 04/20 13:25 Order name: Phosphorus EDMS 04/20 13:25 Order name: Phosphorus EDMS 04/20 13:25 Order name: Phosphorus EDMS 04/20 13:25 Order name: Phosphorus EDMS 04/20 13:25 Order name: Troponin High Sensitivity EDMS 04/20 13:25 Order name: Troponin High Sensitivity EDMS 04/20 13:25 Order name: Troponin High Sensitivity EDMS 04/20 13:25 Order name: CBC with Automated Diff EDMS 04/20 13:25 Order name: CBC with Automated Diff EDMS 04/20 13:25 Order name: CBC with Automated Diff EDMS 04/20 13:25 Order name: CBC with Automated Diff EDMS 04/20 13:25 Order name: CBC with Automated Diff EDMS 04/20 13:25 Order name: CBC with Automated Diff EDMS 04/20 09:37 Order name: Chest Abdomen Pelvis W Cont; Complete Time: 11:57 EDMS 04/20 13:25 Order name: Echo with Doppler EDMS 04/20 13:25 Order name: CONS Physician Consult EDMS 04/20 13:25 Order name: Physical Therapy Consult EDMS 04/20 13:25 Order name: Speech Therapy Consult EDMS 04/20 09:31 Order name: EKG - Nurse/Tech; Complete Time: 09:43 sd2 Administered Medications: 09:48 Drug: NS 0.9% IV 1000 ml IV at 1 bolus Per protocol; 1000 mL bolus Route: IV; Rate: 1 aa5 bolus; Site: right wrist; 11:36 Follow up: Response: No adverse reaction; IV Status: Completed infusion; IV Intake: cm10 1000ml 12:22 Drug: Heparin (DVT/PE- Bolus per protocol) - HEParin IVP 80 units/kg IVP once; Max cm10 8,000 units {Co-Signature: kc6 (Sabra Zamora RN).} Route: IVP; Site: left forearm; 13:08 Follow up: Response: No adverse reaction cm10 12:22 Drug: Heparin (DVT/PE Drip) 18 units/kg/[place] - ([place] [address] units, D5W IV 500 ml) IV cm10 at calculated rate Per protocol; Max initial rate 1800 units/hr {Co-Signature: kc6 (Sabra Zamora RN).} Route: IV; Rate: calculated rate; Site: left forearm; 14:11 Follow up: Response: No adverse reaction; IV Status: Infusion continued upon admission cm10 Disposition Summary: 04/20/24 12:03 Hospitalization Ordered Notes: Hospitalization Status: Inpatient Admission sd2 Provider: Alex Murphy Location: Telemetry/MedSur (Inpatient) sd2 Condition: Stable sd2 Problem: new sd2 Symptoms: are unchanged sd2 Bed/Room Type: Standard sd2 Room Assignment: 208(04/20/24 13:29) eb Diagnosis - Constipation sd2 - Abdominal Distention sd2 - Bilateral pulmonary emboli sd2 Forms: - Medication Reconciliation Form sd2 - SBAR form sd2 - Leadership Thank You Letter sd2 Signatures: Dispatcher [employer] EDMS Josefa Back, RN RN aa5 Evelin Byrnes Stephanie, MD MD sd2 Brenda Mackey RN RN cm10 Sabra Zamora RN kc6 Corrections: (The following items were deleted from the chart) 09:32 09:32 CBC+H.LAB.BRZ ordered. EDMS EDMS 09:32 09:32 COMPREHENSIVE METABOLIC PANEL+C.LAB.BRZ ordered. EDMS EDMS 09:32 09:32 MAGNESIUM+C.LAB.BRZ ordered. EDMS EDMS 09:32 09:32 Troponin High Sensitivity+C.LAB.BRZ ordered. EDMS EDMS 09:32 09:32 PROBNP+C.LAB.BRZ ordered. EDMS EDMS 09:32 09:32 Urinalysis+U.LAB.BRZ ordered. EDMS EDMS 09:37 09:32 Chest Abdomen W/ Con+CT.RAD.BRZ ordered. EDMS EDMS 12:21 11:53 PROTIME (+INR)+COAG.LAB.BRZ ordered. EDMS EDMS 13:29 12:03 sd2 eb
[2024-04-20] MEDS ORDERED: HEPARIN 5000 UNIT/ML 1 ML VIAL ONE (12:15)
[2024-04-20] MEDS ORDERED: HEPARIN/D5W 25,000 UNIT/500 ML BAG IV ONE (12:15)
[2024-04-20 12:29] LABS: PT Prothrombin Time 12.1 SECONDS (9.4-12.5); PTT, Activated Partial Thromb 18.8 SECONDS (24.3-36.9); Protime INR 1.08
[2024-04-20] MEDS ORDERED: ONDANSETRON 4 MG/2 ML VIAL IV PRN (13:15)
[2024-04-20] MEDS: NA CHLORIDE 0.9% 1,000 ML IV SCH (14:52)
--- NOTE | 2024-04-20 15:28 | P.HP ---
Certification for Inpatient Patient admitted to: Inpatient With expected LOS: >2 Midnights Practitioner: I am a practitioner with admitting privileges, knowledge of patient current condition, hospital course, and medical plan of care. Services: Services provided to patient in accordance with Admission requirements found in Title 42 Section 412.3 of the Code of Federal Regulations Patient History Date of Service: 04/20/24 Reason for admission: Bilateral PE History of Present Illness: Wendy Maria is an 83 year old female with Pmhx GERD, hiatal hernia, Hiram's chorea, history of cholelithiasis without obstruction surgical menopause who presented to the ED with chief complaint of abdominal distention and constipation. Upon evaluation in the ED CT Was performed showing bilateral pulmonary embolus placed on 2 LNC. Heparin gtt started in the ED. On examination, Wendy was sleeping, in NAD, on 2 LNC, and hemodynamically stable. Unable to obtain ROS. She lives at home with 24 hour care givers present. Of note, family reports right sided subcostal pain, decreased p.o. intake, decreased ability to swallow, and distended abdomen, although she did have a BM prior to the EMS arriving today. Initial vital BP 127 / 73; Pulse 93; Resp 16 S; Temp 97.8(A); Pulse Ox 93% on R/A Laboratory evaluation WBC 11, H&H 11/35, serum glucose 136 UA negative for infectious process CT CAP reports "Bilateral pulmonary artery emboli, primarily subocclusive, straddling the branching points of the right and left pulmonary arteries. Bilateral small layering pleural effusions and underlying atelectasis. Marked distention of the urinary bladder, without findings to suggest obstruction. Large stool burden in the rectal bulb." Wendy will be admitted to hospitalist service for further treatment of bilateral PE, Dr. Mercado consulted Allergies No Known Drug Allergies Allergy (Verified 02/12/16 12:27) Unknown Home Medications: Calcium Carb/Vit D3/Minerals [Calcium +D & Min Chew Tab] 1 each PO DAILY 09/06/13 Fluoxetine HCl 20 mg PO BID 04/20/24 Multivit-Min/Folic Acid/Vit K1 [Multi For Her 50 Plus Softgel] 1 cap PO DAILY 04/20/24 Polyethylene Glycol 3350 [Miralax] 17 gm PO DAILY 04/20/24 Quetiapine Fumarate [Seroquel] 100 mg PO BID 04/20/24 clonazePAM [Clonazepam] 0.125 mg PO BID 04/20/24 - Past Medical/Surgical History Diabetic: No -: GERD -: Hiatal Hernia -: History of cholelithiasis without obstruction -: Lamar's Chorea -: Surgical Menopause -: Hysterectomy Psychosocial/ Personal History: - Family History Mother Notes: mariluz Father -: Diabetes - Social History Alcohol use: No CD- Drugs: No Caffeine use: Yes Review of Systems is unable to be obtained Physical Examination - Vital Signs Temperature: 97.8 F Blood Pressure: 137/85 Pulse: 87 Respirations: 19 - Physical Exam General: Alert, In no apparent distress, Oriented x3 HEENT: Atraumatic, Normocephalic, PERRLA Neck: Supple, 2+ carotid pulse no bruit Respiratory: Clear to auscultation bilaterally, Normal air movement Cardiovascular: No edema, Normal pulses, Regular rate/rhythm, Normal S1 S2 Capillary refill: <2 Seconds Gastrointestinal: Normal bowel sounds, Soft and benign, No tenderness, Distended Musculoskeletal: No clubbing Integumentary: No rashes Neurological: Normal speech, Normal tone - Studies Laboratory Data (last 24 hrs) 04/20/24 04/20/24 04/20/24 12:11 11:53 09:42 WBC Hgb Hct Plt Count PT 12.1 Cancelled INR 1.08 Cancelled APTT 18.8 L Sodium 140 Potassium 3.8 BUN 18 Creatinine 0.86 Glucose 136 H Magnesium 2.3 Total Bilirubin 1.0 AST 18 ALT 19 Alkaline Phosphatase 64 04/20/24 09:42 WBC 11.00 H Hgb 11.6 L Hct 35.8 L Plt Count 191 PT INR APTT Sodium Potassium BUN Creatinine Glucose Magnesium Total Bilirubin AST ALT Alkaline Phosphatase Assessment and Plan - Plan Assessment and plan Acute bilateral PE Right subcostal pain -CT CAP Report "Bilateral pulmonary artery emboli, primarily subocclusive, straddling the branching points of the right and left pulmonary arteries.Bilateral small layering pleural effusions and underlying atelectasis." -Heparin gtt started in the ED, stopped on the floor -Lovenox weight-based every 12 -Dr. Mercado consulted -Oxygen supplementation as needed -Pain medication Distended bladder -Seen on CT cap, reporting no obstruction noted -Monitor I/O Constipation -Stool burden seen on the CT CAP -Family reports last BM today 04/20 -Mineral oil, dulcolax, miralax Hiram's chorea Decreased PO intake -Continue home medications -Repositioning Q2hr -supportive care -PT/ASSOCIATE ARTISTIC DIRECTOR consulted -aspiration precaution -bedside swallow pending GERD with hiatal hernia -continue home medications DVT ppx weight based lovenox DNR LOS 48 hours Discharge Plan: Home Plan to discharge in: 48 Hours - Advance Directives Does patient have a Living Will: No Does patient have a Durable POA for Healthcare: Yes
[2024-04-20 15:49] VITALS: BMI 26.4
[2024-04-20] MEDS ORDERED: MINERAL OIL 30 ML UCUP PO PRN (15:57)
[2024-04-20] MEDS: PNEUMOCOCCAL VACCINE 0.5 ML IMVAC ONE (17:00)
[2024-04-20] MEDS: MAGNESIUM CITRATE 300 ML BOT PO SCH (17:00)
[2024-04-20] MEDS: MORPHINE 2 MG/ML SYR IV PRN (17:10)
[2024-04-20] MEDS: BISACODYL 10 MG RECTAL SUPP PR ONE (17:25)
[2024-04-20] MEDS: CLONAZEPAM 0.125 MG PO SCH (21:00)
[2024-04-20] MEDS: QUETIAPINE 100MG TAB PO SCH (21:39)
[2024-04-20] MEDS: ENOXAPARIN 80 MG/0.8 ML SQ SCH (21:39)
[2024-04-20] MEDS: FLUOXETINE 20 MG CAP PO SCH (21:39)
[2024-04-21 06:11] LABS: Absolute Basophils 0.1 K/uL (0-0.5); Absolute Eosinophils 0.3 K/uL (0-0.5); Absolute Lymphocytes (CBC) 1.6 K/uL (0.7-4.9); Absolute Monocytes 1.4 K/uL (0.1-1.3); Absolute Neutrophil 7.8 K/uL (1.8-8.0); Basophils % 0.5 % (0-1.3); Eosinophils % 2.3 % (0-4.4); Hematocrit 33.9 % (36.0-45.0); Hemoglobin 10.6 g/dL (12.0-15.0); Lymphocytes % 14.4 % (15.3-44.8); MCH 29.5 pg (27.0-35.0); MCHC 31.3 g/dL (32.0-36.0); MCV 94.1 fL (80-100); MPV 9.8 fL (7.6-11.3); Monocytes % 12.9 % (3.3-12.3); Neutrophils % 69.9 % (41.7-73.7); Platelets 200 thou/uL (152-406); Red Cell Distribution Width 13.4 % (12.1-15.2)
[2024-04-21 06:35] LABS: Magnesium 2.5 mg/dL (1.6-2.4); Phosphorus 3.1 mg/dL (2.5-4.9)
[2024-04-21] MEDS: PNEUMOCOCCAL VACCINE 0.5 ML IMVAC ONE (08:00)
[2024-04-21] MEDS: POLYETHYL GLY 3350 17 GM/DOSE PO SCH (09:00)
[2024-04-21] MEDS ORDERED: POLYETHYL GLY 3350 17 GM/DOSE PO SCH (09:00)
[2024-04-21] MEDS: MULTIVITAMIN TAB PO SCH (09:02)
[2024-04-21] MEDS: CALCIUM CARB 500MG/VIT D 200 IU TAB PO SCH (09:02)
--- NOTE | 2024-04-21 11:36 | RAD REPORT ---
EXAM DESCRIPTION: RAD - Abdomen 1 View (KUB) - 04/21/2024 9:50 am CLINICAL HISTORY: Abdominal pain and distension COMPARISON: Chest Abdomen Pelvis W Cont dated 04/20/2024 TECHNIQUE: Single AP view of the abdomen. FINDINGS: Nonobstructive bowel gas pattern. No air-fluid levels, free air, or pneumatosis. Ovoid [place] in the left flank, may relate to bowel content. Sequelae of cholecystectomy. No significant bony abnormality. IMPRESSION: Nonobstructive bowel gas pattern. .
--- NOTE | 2024-04-21 12:09 | RAD REPORT ---
EXAM DESCRIPTION: Marleen Single View04/21/2024 9:50 am CLINICAL HISTORY: Increased dyspnea COMPARISON: Chest Single View dated 02/08/2016; Chest Single View dated 02/05/2016; CHEST PA AND LAT 2 VIEW dated 10/03/2013; CHEST SINGLE VIEW dated 09/05/2013 TECHNIQUE: Portable AP view of the chest. FINDINGS: Central bilateral interstitial prominence. Left basilar fluffy opacities. Bilateral small effusions larger on the left. No pneumothorax. The cardiomediastinal contours are unremarkable. IMPRESSION: Findings suggestive of central pulmonary edema.
--- NOTE | 2024-04-21 12:29 | P.CNS ---
Date of Consult: 04/21/24 Reason for Consult: Pulmonary embolism Chief Complaint: Bilateral PE History of Present Illness: Patient is 83 years of age with a history of Victor's chorea got sick about a week ago developed diarrhea was treated with [id number] medications and started developing respiratory distress some right sided chest pain under her right breast and it appeared in the hospital was to have bilateral PE to the daughter she is cognitively impaired has done intense. Dementia Allergies No Known Drug Allergies Allergy (Verified 02/12/16 12:27) Unknown Home Medications: Calcium Carb/Vit D3/Minerals [Calcium +D & Min Chew Tab] 1 each PO DAILY 09/06/13 Fluoxetine HCl 20 mg PO BID 04/20/24 Multivit-Min/Folic Acid/Vit K1 [Multi For Her 50 Plus Softgel] 1 cap PO DAILY 04/20/24 Polyethylene Glycol 3350 [Miralax] 17 gm PO DAILY 04/20/24 Quetiapine Fumarate [Seroquel] 100 mg PO BID 04/20/24 clonazePAM [Clonazepam] 0.125 mg PO BID 04/20/24 - Past Medical/Surgical History Diabetic: No -: GERD -: Hiatal Hernia -: History of cholelithiasis without obstruction -: Victor's Chorea -: Surgical Menopause -: Dementia -: Hysterectomy -: L hip replacement Psychosocial/ Personal History: - Family History Mother Notes: mariluz Father Medical History: Diabetes - Social History Smoking Status: Unknown if ever smoked Alcohol use: No CD- Drugs: No Caffeine use: Yes Place of Residence: Home Review of Systems is unable to be obtained Physical Examination Temp Pulse Resp BP Pulse Ox 98.1 F 86 12 149/72 H 94 04/21/24 08:00 04/21/24 08:00 04/21/24 08:00 04/21/24 08:00 04/21/24 08:00 General: Unresponsive HEENT: Atraumatic Neck: Supple Respiratory: Clear to auscultation bilaterally Cardiovascular: No edema, Regular rate/rhythm, Edema (mild edema 1 plus) Gastrointestinal: Normal bowel sounds, Tenderness (Diffuse tenderness) Musculoskeletal: No clubbing Integumentary: No rashes, No breakdown Laboratory Data (last 24 hrs) 04/20/24 12:11 PT 12.1 INR 1.08 APTT 18.8 L - Problems (1) Pulmonary embolism Current Visit: Yes Status: Acute Plan: Pt is 83 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 Stable. Tx with Lovenox for now until able to eat / drink. Change ot Eliquis 5 mg BID crushed labs chem all reviewed. No acute changes on CT of the abdomen. Vitals stable. No sig hypoxemia or hypotension . DW daughter Qualifiers: Acute cor pulmonale presence: unspecified
--- NOTE | 2024-04-21 18:03 | P.PN ---
Date of Service: 04/21/24 Subjective Sleeping, continues to "pocket" food and medication AP PROCESSOR recommends pureed when awake with aspiration precautions and follow for dysphagia therapy IVF turned off OVN d/t SOB Lee placed with > 2000 UOP, UA neg, and kidney function good contstipation ROS 10 point ROS as noted above, otherwise negative Physical Exam General: Alert and Oriented x3, NAD HEENT: Atraumatic, Normocephalic, PERRLA Neck: Supple, 2+ carotid pulse no bruit Respiratory: Right diminished, Normal air movement, on 2 LNC Cardiovascular: No edema, Normal pulses, Regular rate/rhythm, Normal S1 S2 Capillary refill: <2 Seconds Gastrointestinal: Normal bowel sounds, Soft and benign on palpation, NT, Distended Musculoskeletal: No clubbing Integumentary: No rashes Neurological: Normal speech, Normal tone Vitals Reviewed Problem list Acute bilateral PE Right subcostal pain Distended bladder Constipation Cropwell's chorea Dysphagia Decreased PO intake GERD with hiatal hernia Assessment and Plan Acute bilateral PE Right subcostal pain -CT CAP Report "Bilateral pulmonary artery emboli, primarily subocclusive, straddling the branching points of the right and left pulmonary arteries.Bilateral small layering pleural effusions and underlying atelectasis." -Heparin gtt started in the ED, stopped on the floor -Lovenox weight-based every 12, once taking PO change to Eliquis -Dr. Mercado consulted -Oxygen supplementation PRN, attempt to wean -Pain medication Distended bladder Constipation -Seen on CT cap, reporting no obstruction noted -KUB Nonobstructive bowel gas pattern. No air-fluid levels, free air, or pneumatosis. Ovoid opacity in the left flank, may relate to bowel content. Sequelae of cholecystectomy. No significant bony abnormality. IMPRESSION: Nonobstructive bowel gas pattern. -Monitor I/O -Lee placed with >2000 UOP -Stool burden seen on the CT CAP -Family reports last BM today 04/20 -dulcolax, miralax Cropwell's chorea Dysphagia Decreased PO intake -Continue home medications -Repositioning Q2hr -supportive care -PT/AP PROCESSOR consulted -aspiration precaution -bedside swallow pending -gentle IVF GERD with hiatal hernia -continue home medications DVT ppx weight based lovenox DNR LOS 48 hours Discharge Plan: Home Plan to discharge in: 48 Hours
[2024-04-21] MEDS: NA CHLORIDE 0.9% 1,000 ML IV SCH (18:04)
[2024-04-21] MEDS: D5 0.45 NS 1,000 ML IV SCH (19:00)
[2024-04-22 07:09] LABS: Absolute Eosinophils 0.3 K/uL (0-0.5); Absolute Lymphocytes (CBC) 1.7 K/uL (0.7-4.9); Absolute Neutrophil 4.3 K/uL (1.8-8.0); Basophils % 0.5 % (0-1.3); Eosinophils % 4.5 % (0-4.4); Hematocrit 32.5 % (36.0-45.0); Hemoglobin 10.5 g/dL (12.0-15.0); MCH 30.5 pg (27.0-35.0); MCHC 32.3 g/dL (32.0-36.0); MCV 94.4 fL (80-100); MPV 9.9 fL (7.6-11.3); Monocytes % 13.9 % (3.3-12.3); Neutrophils % 58.1 % (41.7-73.7); Platelets 224 thou/uL (152-406); RBC Red Blood Cell Count 3.44 M/uL (3.86-4.86); Red Cell Distribution Width 13.3 % (12.1-15.2)
[2024-04-22 07:30] LABS: Anion Gap 6.7 mEq/L (5.0-15.0); Magnesium 2.4 mg/dL (1.6-2.4); Phosphorus 2.5 mg/dL (2.5-4.9); Potassium 3.7 mEq/L (3.5-5.1)
--- NOTE | 2024-04-22 12:17 | P.PN ---
Subjective Date of Service: 04/22/24 Chief Complaint: Bilateral PE Patient's condition is stable more alert at the bedside still has dyspnea in supine position eating and drinking much Review of Systems is unable to be obtained Physical Examination - Vital Signs Temperature: 98.4 F Blood Pressure: 118/58 Pulse: 80 Respirations: 18 Pulse Ox (%): 92 - Physical Exam General: Alert Respiratory: Clear to auscultation bilaterally Cardiovascular: No edema, Normal pulses Assessment And Plan - Current Problems (Diagnosis) (1) Pulmonary embolism Current Visit: Yes Status: Acute Plan: Has a bilateral pulmonary embolism continue with Lovenox not eating and drinking much cussed with daughter possible peg tube swallowing has been deteriorating PEG tube is in place can switch her over to either Eliquis or Xarelto can be crushed in the meantime continue with Lovenox signs oxygenation satisfactory not a candidate for thrombolytic therapy patient's abdominal pain is improved labs chemistries reviewed white count is normal Qualifiers: Acute cor pulmonale presence: unspecified
--- NOTE | 2024-04-22 12:45 | EKG ---
Test Date: 2024-04-20 Test Time: 09:46:40 Landing Support Specialist: FREDDIE MEASUREMENT RESULTS: Intervals: Rate: 93 NM: 140 QRSD: 78 QT: 360 QTc: 447 [place]: P: 47 NM: 140 QRS: 63 T: 56 INTERPRETIVE STATEMENTS: Normal sinus rhythm Normal ECG Compared to ECG 02/05/2016 16:39:38 No significant changes Electronically Signed On 04-22-24 12:42:50 CDT by Sawyer Page
--- NOTE | 2024-04-22 14:18 | P.PN ---
Date of Service: 04/22/24 Subjective Family at bedside Having less episodes of abdominal pain/crying out since catheter has been inserted Sleeping a lot but when awake recognizing family members Dealing with dysphagia ROS 10 point ROS as noted above, otherwise negative Physical Exam General: Alert and Oriented x1-2, NAD HEENT: Atraumatic, Normocephalic, PERRLA Neck: Supple, 2+ carotid pulse no bruit Respiratory: Right diminished, Normal air movement, on 2 LNC Cardiovascular: No edema, Normal pulses, Regular rate/rhythm, Normal S1 S2 Capillary refill: <2 Seconds Gastrointestinal: Normal bowel sounds, Soft and benign on palpation, NT, Distended, rushing in place Musculoskeletal: No clubbing Integumentary: No rashes Neurological: Speech is slowed, slurred Vitals Reviewed Problem list Acute bilateral PE Acute hypoxic respiratory failure secondary to bilateral PE Right subcostal pain Urinary retention Constipation Hiram's chorea Dysphagia Decreased PO intake GERD with hiatal hernia Assessment and Plan Acute bilateral PE Acute hypoxic respiratory failure secondary to bilateral PE Right subcostal pain -CT CAP Report "Bilateral pulmonary artery emboli, primarily subocclusive, straddling the branching points of the right and left pulmonary arteries.Bilateral small layering pleural effusions and underlying atelectasis." -Lovenox weight-based every 12, once taking PO change to Eliquis -Dr. Mercado consulted/following -Oxygen supplementation PRN, attempt to wean -CXR with some signs of pulmonary congestion, will trial dose of lasix Urinary retention Constipation -Seen on CT cap, reporting no obstruction noted -KUB Nonobstructive bowel gas pattern. No air-fluid levels, free air, or pneumatosis. Ovoid opacity in the left flank, may relate to bowel content. Sequelae of cholecystectomy. No significant bony abnormality. IMPRESSION: Nonobstructive bowel gas pattern. -Monitor I/O -Rushing placed with >2000 UOP 04/21 -Stool burden seen on the CT CAP -Family reports last BM today 04/20 -dulcolax, miralax [place]'s chorea Dysphagia Decreased PO intake -Continue home medications -Repositioning Q2hr -supportive care -PT/QA ARCHITECT consulted -aspiration precaution -Speech recommends pured diet with spoon feeding only including liquids -Discussed with family at length options for nutrition including PEG tube versus more conservative measures/hospice -Further speech eval today GERD with hiatal hernia -continue home medications DVT ppx weight based lovenox DNR LOS 2+ days Discharge Plan: Home Plan to discharge in: 2+ days
[2024-04-22] MEDS: ENSURE ENLIVE 237 ML CAN PO SCH (21:44)
[2024-04-23 06:40] LABS: Absolute Basophils 0.1 K/uL (0-0.5); Absolute Eosinophils 0.4 K/uL (0-0.5); Absolute Lymphocytes (CBC) 1.9 K/uL (0.7-4.9); Absolute Monocytes 0.9 K/uL (0.1-1.3); Absolute Neutrophil 3.7 K/uL (1.8-8.0); Basophils % 0.9 % (0-1.3); Eosinophils % 5.1 % (0-4.4); Hematocrit 32.8 % (36.0-45.0); Hemoglobin 10.7 g/dL (12.0-15.0); Lymphocytes % 27.4 % (15.3-44.8); MCH 30.2 pg (27.0-35.0); MCHC 32.5 g/dL (32.0-36.0); MCV 92.9 fL (80-100); MPV 9.5 fL (7.6-11.3); Monocytes % 13.2 % (3.3-12.3); Neutrophils % 53.4 % (41.7-73.7); Platelets 232 thou/uL (152-406); RBC Red Blood Cell Count 3.53 M/uL (3.86-4.86); Red Cell Distribution Width 13.2 % (12.1-15.2)
[2024-04-23 06:53] LABS: Anion Gap 6.4 mEq/L (5.0-15.0); Magnesium 2.1 mg/dL (1.6-2.4); Phosphorus 2.3 mg/dL (2.5-4.9); Potassium 3.4 mEq/L (3.5-5.1)
--- NOTE | 2024-04-23 07:05 | ECHO ---
HEIGHT: 5 ft 6 in WEIGHT: 164 lb 3.2 oz DATE OF STUDY: 04/22/[address]: Lary Hatfield NP 2-DIMENSIONAL: YES M.MODE: YES DOPPLER: YES COLOR FLOW: YES TDS: PORTABLE: YES DEFINITY: BUBBLE STUDY: DIAGNOSIS: BILATERAL PULMONARY EMBOLISM CARDIAC HISTORY: CATHERIZATION: NO SURGERY: NO PROSTHETIC VALVE: NO PACEMAKER: NO MEASUREMENTS (cm) DIASTOLIC (NORMALS) SYSTOLIC (NORMALS) IVSd 1.1 (0.6-1.2) LA Diam 1.9 (1.9-4.0) LVEF 60-65% LVIDd 3.0 (3.5-5.7) LVIDs 1.9 (2.0-3.5) %FS 36% LVPWd 0.9 (0.6-1.2) Ao Diam 2.7 (2.0-3.7) 2 DIMENSIONAL ASSESSMENT: RIGHT ATRIUM: NORMAL LEFT ATRIUM: NORMAL RIGHT VENTRICLE: NORMAL LEFT VENTRICLE: NORMAL TRICUSPID VALVE: TRACE TRICUSPID REGURGITATION MITRAL VALVE: NORMAL PULMONIC VALVE: NORMAL AORTIC VALVE: NORMAL PERICARDIAL EFFUSION: NONE AORTIC ROOT: NORMAL LEFT VENTRICULAR WALL MOTION: NORMAL DOPPLER/COLOR FLOW: GRADE I DIASTOLIC DYSFUNCTION COMMENTS: 1. NORMAL LEFT VENTRICULAR SYSTOLIC FUNCTION, EJECTION FRACTION 60-65%, NORMAL WALL MOTION 2. GRADE I DIASTOLIC DYSFUNCTION 3. NORMAL FILLING PRESSURE (RIGHT ATRIAL PRESSURE 0-5 mmHg) 4. MILD PULMONARY HYPERTENSION (RIGHT VENTRICULAR SYSTOLIC PRESSURE 30-35 mmHg) TECHNOLOGIST: RAJNI MOODY
[2024-04-23] MEDS: KCL 20 MEQ/100 mL IVPB 20 MEQ/100 ML BAG IV SCH (08:00)
[2024-04-23] MEDS: POTASSIUM PHOS IN 0.9 % NACL 15 MMOL/250 ML BAG IV SCH (09:59)
--- NOTE | 2024-04-23 14:58 | P.PN ---
Date of Service: 04/23/24 Subjective Family at bedside Seems to be swallowing a little better Working on determining nutrition needs and how much she is able to take in by mouth Family considering Dobbhoff versus TPN ROS 10 point ROS as noted above, otherwise negative Physical Exam General: Alert and Oriented x1-2, NAD HEENT: Atraumatic, Normocephalic, PERRLA Neck: Supple, 2+ carotid pulse no bruit Respiratory: Right diminished, Normal air movement, on room air Cardiovascular: No edema, Normal pulses, Regular rate/rhythm, Normal S1 S2 Capillary refill: <2 Seconds Gastrointestinal: Normal bowel sounds, Soft and benign on palpation, NT, Distended, rushing in place Musculoskeletal: No clubbing Integumentary: No rashes Neurological: Speech is slowed, slurred Vitals Reviewed Problem list Acute bilateral PE Acute hypoxic respiratory failure secondary to bilateral PE Right subcostal pain Urinary retention Constipation Hiram's chorea Dysphagia Decreased PO intake GERD with hiatal hernia Assessment and Plan Acute bilateral PE Acute hypoxic respiratory failure secondary to bilateral PE Right subcostal pain -CT CAP Report "Bilateral pulmonary artery emboli, primarily subocclusive, straddling the branching points of the right and left pulmonary arteries.Bilateral small layering pleural effusions and underlying atelectasis." -Lovenox weight-based every 12, once taking PO change to Eliquis -Dr. Mercado consulted/following -Continue to attempt to wean O2 -CXR with some signs of pulmonary congestion Urinary retention Constipation -Seen on CT cap, reporting no obstruction noted -KUB Nonobstructive bowel gas pattern. No air-fluid levels, free air, or pneumatosis. Ovoid opacity in the left flank, may relate to bowel content. Sequelae of cholecystectomy. No significant bony abnormality. IMPRESSION: Nonobstructive bowel gas pattern. -Monitor I/O -Rushing placed with >2000 UOP 04/21 -Stool burden seen on the CT CAP -Family reports last BM today 04/20 -dulcolax, miralax [place]'s chorea Dysphagia Decreased PO intake -Continue home medications -Repositioning Q2hr -supportive care -PT/DATA REVIEW SPECIALIST consulted -aspiration precaution -Speech recommends pured diet with spoon feeding only including liquids -Discussed with family at length options for nutrition including PEG tube versus more conservative measures/hospice -Family discussion options including TPN versus Dobbhoff, reports slow but steady improvement in speech/swallowing -Further speech eval throughout hospitalization GERD with hiatal hernia -continue home medications DVT ppx weight based lovenox DNR LOS 2+ days Discharge Plan: Home Plan to discharge in: 2+ days
[2024-04-23 17:16] LABS: Phosphorus 3.4 mg/dL (2.5-4.9)
[2024-04-23 17:17] LABS: Potassium 4.6 mEq/L (3.5-5.1)
[2024-04-24 04:53] LABS: Absolute Eosinophils 0.3 K/uL (0-0.5); Absolute Lymphocytes (CBC) 1.8 K/uL (0.7-4.9); Absolute Monocytes 0.8 K/uL (0.1-1.3); Basophils % 0.6 % (0-1.3); Eosinophils % 5.8 % (0-4.4); Hemoglobin 10.7 g/dL (12.0-15.0); Lymphocytes % 30.1 % (15.3-44.8); MCH 30.7 pg (27.0-35.0); MCHC 33.4 g/dL (32.0-36.0); MCV 91.9 fL (80-100); MPV 9.5 fL (7.6-11.3); Monocytes % 13.1 % (3.3-12.3); Neutrophils % 50.4 % (41.7-73.7); Nucleated Red Blood Cells % 0.1 % (0-0); Platelets 290 thou/uL (152-406); RBC Red Blood Cell Count 3.48 M/uL (3.86-4.86); Red Cell Distribution Width 13.4 % (12.1-15.2)
[2024-04-24 05:02] LABS: Anion Gap 5.5 mEq/L (5.0-15.0); Magnesium 2.1 mg/dL (1.6-2.4); Phosphorus 3.3 mg/dL (2.5-4.9); Potassium 3.5 mEq/L (3.5-5.1)
[2024-04-24] MEDS: KCL 20 MEQ/100 mL IVPB 20 MEQ/100 ML BAG IV SCH (09:44)
--- NOTE | 2024-04-24 14:21 | P.PN ---
Date of Service: 04/24/24 Subjective Family at bedside Seems to be swallowing a little better Doing better with food from outside hospital Family decided against feeding tube/PEG ROS 10 point ROS as noted above, otherwise negative Physical Exam General: Alert and Oriented x1-2, NAD HEENT: Atraumatic, Normocephalic, PERRLA Neck: Supple, 2+ carotid pulse no bruit Respiratory: Right diminished, Normal air movement, on room air Cardiovascular: No edema, Normal pulses, Regular rate/rhythm, Normal S1 S2 Capillary refill: <2 Seconds Gastrointestinal: Normal bowel sounds, Soft and benign on palpation, NT, Distended, rushing in place Musculoskeletal: No clubbing Integumentary: No rashes Neurological: Speech is slowed, slurred Vitals Reviewed Problem list Acute bilateral PE Acute hypoxic respiratory failure secondary to bilateral PE Right subcostal pain Urinary retention Constipation Hamblen's chorea Dysphagia Decreased PO intake GERD with hiatal hernia Assessment and Plan Acute bilateral PE Acute hypoxic respiratory failure secondary to bilateral PE Right subcostal pain -CT CAP Report "Bilateral pulmonary artery emboli, primarily subocclusive, straddling the branching points of the right and left pulmonary arteries. Bilateral small layering pleural effusions and underlying atelectasis." -Lovenox weight-based every 12, once taking PO change to Eliquis -Dr. Mercado consulted/following -Continue to attempt to wean O2 -CXR with some signs of pulmonary congestion -Family considering hospice services -Further discussion about continuing to treat PE with Eliquis versus Lovenox at discharge from hospital if on hospice -director construction services consulted for further discussion with hospice Urinary retention Constipation -Seen on CT cap, reporting no obstruction noted -KUB Nonobstructive bowel gas pattern. No air-fluid levels, free air, or pneumatosis. Ovoid opacity in the left flank, may relate to bowel content. Sequelae of cholecystectomy. No significant bony abnormality. IMPRESSION: Nonobs tructive bowel gas pattern. -Monitor I/O -Rushing placed with >2000 UOP 04/21 -Stool burden seen on the CT CAP -Family reports last BM today 04/20 -dulcolax, miralax Hiram's chorea Dysphagia Decreased PO intake -Continue home medications -Repositioning Q2hr -supportive care -PT/VENEER REPAIRER MACHINE consulted -aspiration precaution -Speech recommends pured diet with spoon feeding only including liquids -Family leaning towards hospice services without placement of feeding tube/PEG tube GERD with hiatal hernia -continue home medications DVT ppx weight based lovenox DNR LOS 1 to 2 days Discharge Plan: Home Plan to discharge in: 2+ days
[2024-04-25 05:01] LABS: Absolute Eosinophils 0.3 K/uL (0-0.5); Absolute Monocytes 0.7 K/uL (0.1-1.3); Absolute Neutrophil 2.7 K/uL (1.8-8.0); Basophils % 0.8 % (0-1.3); Eosinophils % 5.7 % (0-4.4); Hematocrit 33.8 % (36.0-45.0); Hemoglobin 10.7 g/dL (12.0-15.0); Lymphocytes % 34.3 % (15.3-44.8); MCH 29.7 pg (27.0-35.0); MCHC 31.7 g/dL (32.0-36.0); MCV 93.8 fL (80-100); MPV 9.5 fL (7.6-11.3); Monocytes % 12.7 % (3.3-12.3); Neutrophils % 46.5 % (41.7-73.7); Platelets 326 thou/uL (152-406); RBC Red Blood Cell Count 3.61 M/uL (3.86-4.86); Red Cell Distribution Width 13.3 % (12.1-15.2)
[2024-04-25 05:13] LABS: Anion Gap 8.6 mEq/L (5.0-15.0); Magnesium 2.3 mg/dL (1.6-2.4); Phosphorus 3.1 mg/dL (2.5-4.9); Potassium 3.6 mEq/L (3.5-5.1)
[2024-04-25 08:27] VITALS: O2SAT 95
[2024-04-25] MEDS: KCL 20 MEQ/100 mL IVPB 20 MEQ/100 ML BAG IV SCH (09:48)
[2024-04-25 12:35] VITALS: BP 131/73; TEMP 97.2
--- NOTE | 2024-04-25 14:59 | P.DS ---
Admission Date: 04/20/24 Discharge Date: 04/25/24 Disposition: HOSPICE-HOME Discharge Condition: FAIR Reason for Admission: Bilateral PE Consultations: PulmonologyDr. Mercado Brief History of Present Illness: Wendy Maria is an 83 year old female with Pmhx GERD, hiatal hernia, Hiram's chorea, history of cholelithiasis without obstruction surgical menopause who presented to the ED with chief complaint of abdominal distention and constipation. Upon evaluation in the ED CT Was performed showing bilateral pulmonary embolus placed on 2 LNC. Heparin gtt started in the ED. Hospital Course: Patient was admitted to the hospital for bilateral pulmonary embolism, she has a history of Hammond's disease and is cared by for her family members/caregivers at home. She was requiring nasal cannula oxygen on admission and transitioned from IV heparin to subcu Lovenox during her hospitalization. She had significant difficulties with her swallowing, she had been having some issues but over the course of the last couple weeks and especially the last few days in the hospital the dysphagia was significantly worse. She was seen by speech therapy who recommended a pured diet, initially patient was only able to tolerate very small amounts of nutrition throughout the day and very slow with her swallowing, this gradually improved. She still did not seem to be meeting her goals as far as nutrition goes, further discussions with family about the options of Dobbhoff, PEG tube, TPN/PPN were discussed and ultimately family decided to do the best with what she can do for now just by mouth. Her hospitalization was also complicated with urinary retention of 2 L, Rushing catheter was inserted and this remains in place at discharge. Ultimately the decision to go home with hospice was made and patient was accepted to [facility]. Family does wish to continue treating her acute pulmonary embolism with subcu Lovenox given her inability to tolerate oral medications with any regularity and significant difficulty administering medications. Prescription for Lovenox sent to [facility] pharmacy, hospice agency below for further manage Lovenox/anticoagulation for PE. Problem list Acute bilateral PE Acute hypoxic respiratory failure secondary to bilateral PE Right subcostal pain Urinary retention Constipation Hammond's chorea Dysphagia Decreased PO intake GERD with hiatal hernia General: Alert and Oriented x1-2, NAD HEENT: Atraumatic, Normocephalic, PERRLA Neck: Supple, 2+ carotid pulse no bruit Respiratory: Right diminished, Normal air movement, on room air Cardiovascular: No edema, Normal pulses, Regular rate/rhythm, Normal S1 S2 Capillary refill: <2 Seconds Gastrointestinal: Normal bowel sounds, Soft and benign on palpation, NT, Distended, rushing in place Musculoskeletal: No clubbing Integumentary: No rashes Neurological: Speech is slowed, slurred Vitals Reviewed Vital Signs/Physical Exam: Temp Pulse Resp BP Pulse Ox 97.2 F 81 16 131/73 95 04/25/24 12:00 04/25/24 12:00 04/25/24 12:00 04/25/24 12:00 04/25/24 12:00 Laboratory Data at Discharge: WBC 5.90 thou/uL (4.3-10.9) 04/25/24 04:19 Hgb 10.7 g/dL (12.0-15.0) L 04/25/24 04:19 Hct 33.8 % (36.0-45.0) L 04/25/24 04:19 Plt Count 326 thou/uL (152-406) 04/25/24 04:19 PT 12.1 SECONDS (9.4-12.5) 04/20/24 12:11 INR 1.08 04/20/24 12:11 APTT 18.8 SECONDS (24.3-36.9) L 04/20/24 12:11 Sodium 141 mEq/L (136-145) 04/25/24 04:19 Potassium 3.6 mEq/L (3.5-5.1) 04/25/24 04:19 BUN 5 mg/dL (7-18) L 04/25/24 04:19 Creatinine 0.66 mg/dL (0.55-1.02) 04/25/24 04:19 Glucose 103 mg/dL (74-106) 04/25/24 04:19 Phosphorus 3.1 mg/dL (2.5-4.9) 04/25/24 04:19 Magnesium 2.3 mg/dL (1.6-2.4) 04/25/24 04:19 Total Bilirubin 1.0 mg/dL (0.2-1.0) 04/20/24 09:42 AST 18 U/L (15-37) 04/20/24 09:42 ALT 19 U/L (13-56) 04/20/24 09:42 Alkaline Phosphatase 64 U/L (45-117) 04/20/24 09:42 Home Medications: Calcium Carb/Vit D3/Minerals [Calcium +D & Min Chew Tab] 1 each PO DAILY 09/06/13 Fluoxetine HCl 20 mg PO BID 04/20/24 Multivit-Min/Folic Acid/Vit K1 [Multi For Her 50 Plus Softgel] 1 cap PO DAILY 04/20/24 Polyethylene Glycol 3350 [Miralax] 17 gm PO DAILY 04/20/24 Quetiapine Fumarate [Seroquel] 100 mg PO BID 04/20/24 clonazePAM [Clonazepam] 0.125 mg PO BID 04/20/24 Enoxaparin Sodium [Lovenox 80 MG INJ] 80 mg SQ BID #60 syr 04/25/24 Ensure Enlive 237 ml PO BID can 04/25/24 New Medications: Enoxaparin Sodium [Lovenox 80 MG INJ] 80 mg SQ BID #60 syr Physician Discharge Instructions: Patient was admitted to the hospital for bilateral pulmonary embolism, she has a history of Hiram's disease and is cared by for her family members/caregivers at home. She was requiring nasal cannula oxygen on admission and transitioned from IV heparin to subcu Lovenox during her hospitalization. She had significant difficulties with her swallowing, she had been having some issues but over the course of the last couple weeks and especially the last few days in the hospital the dysphagia was significantly worse. She was seen by speech therapy who recommended a pured diet, initially patient was only able to tolerate very small amounts of nutrition throughout the day and very slow with her swallowing, this gradually improved. She still did not seem to be meeting her goals as far as nutrition goes, further discussions with family about the options of Dobbhoff, PEG tube, TPN/PPN were discussed and ultimately family decided to do the best with what she can do for now just by mouth. Her hospitalization was also complicated with urinary retention of 2 L, Rushing catheter was inserted and this remains in place at discharge. Ultimately the decision to go home with hospice was made and patient was accepted to [facility] Family does wish to continue treating her acute pulmonary embolism with subcu Lovenox given her inability to tolerate oral medications with any regularity and significant difficulty administering medications. Prescription for Lovenox sent to [facility] pharmacy, hospice agency below for further manage Lovenox/anticoagulation for PE. Diet: pureed Activity: Bedrest Followup: Jasbir Landin DO [Primary Care Provider] - 1-2 Weeks Time spent managing pt's care (in minutes): 45
== END 2024-04-25 14:06 | disposition hospice, home (50) | DRG 175 ==
LOC: ER 08:24 → ERHOLD 13:15 → 2ND 13:57
PROVIDERS: ADMIT Internal Medicine; ATTEND Hospitalist
PROC: 0T9B70Z Drainage of Bladder with Drainage Device, Via Natural or Artificial Opening (ICD-10-PCS; principal; 2024-04-21)
DX: I26.99 Other pulmonary embolism without acute cor pulmonale (principal); J96.01 Acute respiratory failure with hypoxia; G10 Huntington's disease; F02.80 Dementia in other diseases classified elsewhere, unspecified severity, without behavioral disturbance, psychotic disturbance, mood disturbance, and anxiety; K59.00 Constipation, unspecified; K44.9 Diaphragmatic hernia without obstruction or gangrene; N32.89 Other specified disorders of bladder; K21.9 Gastro-esophageal reflux disease without esophagitis; R13.10 Dysphagia, unspecified; R33.9 Retention of urine, unspecified; Z51.5 Encounter for palliative care; Z96.642 Presence of left artificial hip joint; Z79.899 Other long term (current) drug therapy; Z90.710 Acquired absence of both cervix and uterus
CPT/HCPCS: 36415; 51702; 71045; 71260; 74018; 74177; 80048; 80053; 81003; 82947; 83735; 83880; 84100; 84132; 84484; 85025; 85610; 85730; 92526; 92610; 93005; 93306; 96361; 96365; 96366; 97112; 97116; 97161; 97530; 99285; J1644; J2270; J3480; J7030; J7799; Q9967

== ENCOUNTER 2024-05-09 21:54 | Emergency (ER) | payer MEDICARE ==
--- OUTSIDE RECORDS SUMMARY | 2024-05-09 21:58 | XMS REPORT | Continuity of Care Document ---
Author Name Unknown Address [address] [facility] [address] [place] [address] [facility] thcredwood llcect Address [address] [facility] [place] [address] Care Team Providers Care [employer] Operator Name Role Phone Jasbir Landin Attending Clinician Unavailable Gisel Freitas Attending Clinician Unavailable Timmy De La Torre Attending Clinician Ginny Boothe Attending Clinician [phone] Ho --Estefania Attending Clinician [phone] Payers Payer Name Policy Type Policy Number Effective Date Expirati on Date Source [facility] (MEDICARE REPLACEMENT HMO) [id number] 2023 00:00:00 [employer] MEDICARE C1 [id number] [facility] AETNA MEDICARE C1 [id number] Co [facility] Problems Condition Name Condition Details Condition Category Status Onset Date Resolution Date Last Treatment Date Treating Clinician Comments Source [id number] Closed displaced fracture of shaft of right clavicle, initial encounter Problem [facility] Memory problem Memory problem Problem [facility] [id number] Family history of Schleicher 's disease Problem Common [facility] Depression Depression Problem [facility] [id number] Skin lesions Problem [facility] Anxiety Anxiety Problem [facility] [id number] Hyperglyce sudhakar Problem [facility] [id number] Urinary incontinen ce, unspecifie d type Problem [facility] [id number] Hyperchole sterolemia Problem [facility] [id number] Diarrhea, unspecifie d type Problem [facility] [id number] Elevated BP without diagnosis of hypertensi on Problem [facility] [id number] Traumatic hematoma of forehead, subsequent encounter Problem [facility] [id number] Frailty Problem [facility] [id number] Counseling and coordinati on of care Problem [facility] [id number] Glaucoma of both eyes, unspecifie d glaucoma type Problem [facility] 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 [facility] [id number] Family history of atheroscle rosis Problem [facility] [id number] Physical deconditio manohar Problem [facility] Impairment of balance Balance problem Problem [facility] [id number] Blurry vision Problem [facility] [id number] Urinary frequency Problem [facility] History of fall Status post fall Problem [facility] [id number] Behavior concern in adult Problem [facility] Contractur e, other specified joint Contractur e, other specified joint Problem [facility] Contractur e of multiple joints (disorder) Contractur e of joint of multiple sites Problem [facility] Social History Social Habit Start Date Stop Date Quantity Comments Source History of Tobacco Use [facility] Sex Assigned At [facility] Smoking Status Start Date Stop Date Source Never Smoker [facility] Medications Ordered Medication Name Filled Medication Name Start Date Stop Date Current Medication? Ordering Clinician Indication Dosage Frequency Signature (SIG) Comments Components Source Polytrim 78296-0.1 UNIT/ML Polytrim 91138-0.1 UNIT/ML 0 8-14 00:00: 00 No 1{drop_ into_af fected_ eye} QID Polytrim 42110-5.1 UNIT/ML Diflucan 150 MG Diflucan 150 MG [...] HIGH DOSE OVER 65 2022-05-30 16:21:00 Completed [facility] FLUZONE HIGH DOSE OVER 65 FLUZONE HIGH DOSE OVER 65 2022-05-30 16:21:00 Completed [facility] FLUZONE HIGH DOSE OVER 65 FLUZONE HIGH DOSE OVER 65 2022-05-30 16:21:00 Completed [facility] FLUZONE HIGH DOSE OVER 65 FLUZONE HIGH DOSE OVER 65 2022-05-30 16:21:00 Completed [facility] FluAD FluAD 2021-06-01 11:18:00 Completed [facility] FluAD FluAD 2021-06-01 11:18:00 Completed [facility] FluAD FluAD 2021-06-01 11:18:00 Completed [facility] FluAD FluAD 2021-06-01 11:18:00 Completed [facility] FluAD FluAD 2021-06-01 11:18:00 Completed [facility] FluAD FluAD 2021-06-01 11:18:00 Completed [facility] FluAD FluAD 2021-06-01 11:18:00 Completed [facility] FluAD FluAD 2021-06-01 11:18:00 Completed [facility] FluAD FluAD 2021-06-01 11:18:00 Completed [facility] FluAD FluAD 2021-06-01 11:18:00 Completed [facility] FluAD FluAD 2021-06-01 11:18:00 Completed [facility] FluAD FluAD 2021-06-01 11:18:00 Completed [facility] FluAD FluAD 2021-06-01 11:18:00 Completed [facility] FluAD FluAD 2021-06-01 11:18:00 Completed [facility] FLUZONE HIGH DOSE OVER 65 FLUZONE HIGH DOSE OVER 65 2020-05-19 14:40:00 Completed [facility] FLUZONE HIGH DOSE OVER 65 FLUZONE HIGH DOSE OVER 65 2020-05-19 14:40:00 Completed [facility] FLUZONE HIGH DOSE OVER 65 FLUZONE HIGH DOSE OVER 65 2020-05-19 14:40:00 Completed [facility] FLUZONE HIGH DOSE OVER 65 FLUZONE HIGH DOSE OVER 65 2020-05-19 14:40:00 Completed [facility] FLUZONE HIGH DOSE OVER 65 FLUZONE HIGH DOSE OVER 65 2020-05-19 14:40:00 Completed [facility] FLUZONE HIGH DOSE OVER 65 FLUZONE HIGH DOSE OVER 65 2020-05-19 14:40:00 Completed [facility] FLUZONE HIGH DOSE OVER 65 FLUZONE HIGH DOSE OVER 65 2020-05-19 14:40:00 Completed [facility] FLUZONE HIGH DOSE OVER 65 FLUZONE HIGH DOSE OVER 65 2020-05-19 14:40:00 Completed [facility] FLUZONE HIGH DOSE OVER 65 FLUZONE HIGH DOSE OVER 65 2020-05-19 14:40:00 Completed [facility] FLUZONE HIGH DOSE OVER 65 FLUZONE HIGH DOSE OVER 65 2020-05-19 14:40:00 Completed [facility] FLUZONE HIGH DOSE OVER 65 FLUZONE HIGH DOSE OVER 65 2020-05-19 14:40:00 Completed [facility] FLUZONE HIGH DOSE OVER 65 FLUZONE HIGH DOSE OVER 65 2020-05-19 14:40:00 Completed [facility] FLUZONE HIGH DOSE OVER 65 FLUZONE HIGH DOSE OVER 65 2020-05-19 14:40:00 Completed [facility] FLUZONE HIGH DOSE OVER 65 FLUZONE HIGH DOSE OVER 65 2020-05-19 14:40:00 Completed [facility] FLUZONE HIGH DOSE OVER 65 FLUZONE HIGH DOSE OVER 65 2020-05-19 14:40:00 Completed [facility] FLUZONE HIGH DOSE OVER 65 FLUZONE HIGH DOSE OVER 65 2019-05-27 16:35:00 Completed [facility] FLUZONE HIGH DOSE OVER 65 FLUZONE HIGH DOSE OVER 65 2019-05-27 16:35:00 Completed [facility] FLUZONE HIGH DOSE OVER 65 FLUZONE HIGH DOSE OVER 65 2019-05-27 16:35:00 Completed [facility] FLUZONE HIGH DOSE OVER 65 FLUZONE HIGH DOSE OVER 65 2019-05-27 16:35:00 Completed [facility] FLUZONE HIGH DOSE OVER 65 FLUZONE HIGH DOSE OVER 65 2019-05-27 16:35:00 Completed [facility] FLUZONE HIGH DOSE OVER 65 FLUZONE HIGH DOSE OVER 65 2019-05-27 16:35:00 Completed [facility] FLUZONE HIGH DOSE OVER 65 FLUZONE HIGH DOSE OVER 65 2019-05-27 16:35:00 Completed [facility] FLUZONE HIGH DOSE OVER 65 FLUZONE HIGH DOSE OVER 65 2019-05-27 16:35:00 Completed [facility] FLUZONE HIGH DOSE OVER 65 FLUZONE HIGH DOSE OVER 65 2019-05-27 16:35:00 Completed [facility] FLUZONE HIGH DOSE OVER 65 FLUZONE HIGH DOSE OVER 65 2019-05-27 16:35:00 Completed [facility] FLUZONE HIGH DOSE OVER 65 FLUZONE HIGH DOSE OVER 65 2019-05-27 16:35:00 Completed [facility] FLUZONE HIGH DOSE OVER 65 FLUZONE HIGH DOSE OVER 65 2019-05-27 16:35:00 Completed [facility] FLUZONE HIGH DOSE OVER 65 FLUZONE HIGH DOSE OVER 65 2019-05-27 16:35:00 Completed [facility] FLUZONE HIGH DOSE OVER 65 FLUZONE HIGH DOSE OVER 65 2019-05-27 16:35:00 Completed [facility] FLUZONE HIGH DOSE OVER 65 FLUZONE HIGH DOSE OVER 65 2019-05-27 16:35:00 Completed [facility] FLUZONE HIGH DOSE OVER 65 FLUZONE HIGH DOSE OVER 65 2019-05-27 00:00:00 Completed [facility] FluAD FluAD Unknown Completed [facility] FLUZONE HIGH DOSE OVER 65 FLUZONE HIGH DOSE OVER 65 Unknown Completed [facility] FLUZONE HIGH DOSE OVER 65 FLUZONE HIGH DOSE OVER 65 Unknown Completed [facility] FLUZONE HIGH DOSE OVER 65 FLUZONE HIGH DOSE OVER 65 Unknown Completed [facility] FluAD FluAD Unknown Completed [facility] FLUZONE HIGH DOSE OVER 65 FLUZONE HIGH DOSE OVER 65 Unknown Completed [facility] FLUZONE HIGH DOSE OVER 65 FLUZONE HIGH DOSE OVER 65 Unknown Completed [facility] FLUZONE HIGH DOSE OVER 65 FLUZONE HIGH DOSE OVER 65 Unknown Completed [facility] FluAD FluAD Unknown Completed [facility] FLUZONE HIGH DOSE OVER 65 FLUZONE HIGH DOSE OVER 65 Unknown Completed [facility] FLUZONE HIGH DOSE OVER 65 FLUZONE HIGH DOSE OVER 65 Unknown Completed [facility] FLUZONE HIGH DOSE OVER 65 FLUZONE HIGH DOSE OVER 65 Unknown Completed [facility] FluAD FluAD Unknown Completed [facility] FLUZONE HIGH DOSE OVER 65 FLUZONE HIGH DOSE OVER 65 Unknown Completed [facility] FLUZONE HIGH DOSE OVER 65 FLUZONE HIGH DOSE OVER 65 Unknown Completed [facility] FLUZONE HIGH DOSE OVER 65 FLUZONE HIGH DOSE OVER 65 Unknown Completed [facility] FluAD FluAD Unknown Completed [facility] FLUZONE HIGH DOSE OVER 65 FLUZONE HIGH DOSE OVER 65 Unknown Completed [facility] FLUZONE HIGH DOSE OVER 65 FLUZONE HIGH DOSE OVER 65 Unknown Completed [facility] FLUZONE HIGH DOSE OVER 65 FLUZONE HIGH DOSE OVER 65 Unknown Completed [facility] FluAD FluAD Unknown Completed [facility] FLUZONE HIGH DOSE OVER 65 FLUZONE HIGH DOSE OVER 65 Unknown Completed [facility] FLUZONE HIGH DOSE OVER 65 FLUZONE HIGH DOSE OVER 65 Unknown Completed [facility] FLUZONE HIGH DOSE OVER 65 FLUZONE HIGH DOSE OVER 65 Unknown Completed [facility] FluAD FluAD Unknown Completed [facility] FLUZONE HIGH DOSE OVER 65 FLUZONE HIGH DOSE OVER 65 Unknown Completed [facility] FLUZONE HIGH DOSE OVER 65 FLUZONE HIGH DOSE OVER 65 Unknown Completed [facility] FLUZONE HIGH DOSE OVER 65 FLUZONE HIGH DOSE OVER 65 Unknown Completed [facility] FluAD FluAD Unknown Completed [facility] FLUZONE HIGH DOSE OVER 65 FLUZONE HIGH DOSE OVER 65 Unknown Completed [facility] FLUZONE HIGH DOSE OVER 65 FLUZONE HIGH DOSE OVER 65 Unknown Completed [facility] FLUZONE HIGH DOSE OVER 65 FLUZONE HIGH DOSE OVER 65 Unknown Completed [facility] FluAD FluAD Unknown Completed [facility] FLUZONE HIGH DOSE OVER 65 FLUZONE HIGH DOSE OVER 65 Unknown Completed [facility] FLUZONE HIGH DOSE OVER 65 FLUZONE HIGH DOSE OVER 65 Unknown Completed [facility] FLUZONE HIGH DOSE OVER 65 FLUZONE HIGH DOSE OVER 65 Unknown Completed [facility] FluAD FluAD Unknown Completed [facility] FLUZONE HIGH DOSE OVER 65 FLUZONE HIGH DOSE OVER 65 Unknown Completed [facility] FLUZONE HIGH DOSE OVER 65 FLUZONE HIGH DOSE OVER 65 Unknown Completed [facility] FLUZONE HIGH DOSE OVER 65 FLUZONE HIGH DOSE OVER 65 Unknown Completed [facility] FluAD FluAD Unknown Completed [facility] FLUZONE HIGH DOSE OVER 65 FLUZONE HIGH DOSE OVER 65 Unknown Completed [facility] FLUZONE HIGH DOSE OVER 65 FLUZONE HIGH DOSE OVER 65 Unknown Completed [facility] FLUZONE HIGH DOSE OVER 65 FLUZONE HIGH DOSE OVER 65 Unknown Completed [facility] FluAD FluAD Unknown Completed [facility] FLUZONE HIGH DOSE OVER 65 FLUZONE HIGH DOSE OVER 65 Unknown Completed [facility] FLUZONE HIGH DOSE OVER 65 FLUZONE HIGH DOSE OVER 65 Unknown Completed [facility] FLUZONE HIGH DOSE OVER 65 FLUZONE HIGH DOSE OVER 65 Unknown Completed [facility] FluAD FluAD Unknown Completed [facility] FLUZONE HIGH DOSE OVER 65 FLUZONE HIGH DOSE OVER 65 Unknown Completed [facility] FLUZONE HIGH DOSE OVER 65 FLUZONE HIGH DOSE OVER 65 Unknown Completed [facility] FLUZONE HIGH DOSE OVER 65 FLUZONE HIGH DOSE OVER 65 Unknown Completed [facility] FluAD FluAD Unknown Completed [facility] FLUZONE HIGH DOSE OVER 65 FLUZONE HIGH DOSE OVER 65 Unknown Completed [facility] FLUZONE HIGH DOSE OVER 65 FLUZONE HIGH DOSE OVER 65 Unknown Completed [facility] FLUZONE HIGH DOSE OVER 65 FLUZONE HIGH DOSE OVER 65 Unknown Completed [facility] FluAD FluAD Unknown Completed [facility] FLUZONE HIGH DOSE OVER 65 FLUZONE HIGH DOSE OVER 65 Unknown Completed [facility] FLUZONE HIGH DOSE OVER 65 FLUZONE HIGH DOSE OVER 65 Unknown Completed [facility] FLUZONE HIGH DOSE OVER 65 FLUZONE HIGH DOSE OVER 65 Unknown Completed [facility] FluAD FluAD Unknown Completed [facility] FLUZONE HIGH DOSE OVER 65 FLUZONE HIGH DOSE OVER 65 Unknown Completed [facility] FLUZONE HIGH DOSE OVER 65 FLUZONE HIGH DOSE OVER 65 Unknown Completed [facility] FLUZONE HIGH DOSE OVER 65 FLUZONE HIGH DOSE OVER 65 Unknown Completed [facility] Vital Signs Vital Name Observation Time Observation Value Comments S ource height 2023-12-17 14:10:00 64 [in_i] Commo n [facility] weight 2023-12-17 14:10:00 165 [lb_av] Comm on [facility] bmi 2023-12-17 14:10:00 28.32 kg/m2 Comm on [facility] blood pressure systolic 2023-12-17 14:10:00 124 mm[Hg] Common [facility] blood pressure diastolic 2023-12-17 14:10:00 70 mm[Hg] Common [facility] height 2023-12-17 14:20:00 64 [in_i] Commo n [facility] weight 2023-12-17 14:20:00 165 [lb_av] Comm on [facility] bmi 2023-12-17 14:20:00 28.32 kg/m2 Comm on [facility] blood pressure systolic 2023-12-17 14:20:00 124 mm[Hg] Common [facility] blood pressure diastolic 2023-12-17 14:20:00 70 mm[Hg] Common [facility] height 2023-06-27 14:20:00 64 [in_i] Commo n [facility] weight 2023-06-27 14:20:00 165 [lb_av] Comm on [facility] bmi 2023-06-27 14:20:00 28.32 kg/m2 Comm on [facility] height 2023-04-09 11:20:00 64.00 [in_i] Com [facility] weight 2023-04-09 11:20:00 165 [lb_av] Comm on [facility] bmi 2023-04-09 11:20:00 28.32 kg/m2 Comm on [facility] height 2022-12-13 13:20:00 64.00 [in_i] Com [facility] weight 2022-12-13 13:20:00 160 [lb_av] Comm on [facility] temperature 2022-12-13 13:20:00 97.5 [degF] Com [facility] bmi 2022-12-13 13:20:00 27.46 kg/m2 Comm on [facility] oximetry 2022-12-13 13:20:00 98 % Commo n [facility] respiratory rate 2022-12-13 13:20:00 16 /min Common [facility] blood pressure systolic 2022-12-13 13:20:00 129 mm[Hg] Common [facility] blood pressure diastolic 2022-12-13 13:20:00 74 mm[Hg] Common [facility] height 2022-12-13 14:00:00 64.00 [in_i] Com [facility] weight 2022-12-13 14:00:00 160 [lb_av] Comm on [facility] temperature 2022-12-13 14:00:00 97.5 [degF] Com [facility] bmi 2022-12-13 14:00:00 27.46 kg/m2 Comm on [facility] oximetry 2022-12-13 14:00:00 98 % Commo n [facility] respiratory rate 2022-12-13 14:00:00 16 /min Common [facility] blood pressure systolic 2022-12-13 14:00:00 129 mm[Hg] Common [facility] blood pressure diastolic 2022-12-13 14:00:00 74 mm[Hg] Common [facility] height 2022-05-30 16:00:00 64.00 [in_i] Com [facility] weight 2022-05-30 16:00:00 160.0 [lb_av] Co mmon [facility] temperature 2022-05-30 16:00:00 97.2 [degF] Com [facility] bmi 2022-05-30 16:00:00 27.46 kg/m2 Comm on [facility] oximetry 2022-05-30 16:00:00 96 % Commo n [facility] respiratory rate 2022-05-30 16:00:00 16 /min [facility] blood pressure systolic 2022-05-30 16:00:00 124 mm[Hg] [facility] blood pressure diastolic 2022-05-30 16:00:00 70 mm[Hg] Common [facility] height 2021-12-22 11:30:00 64.00 [in_i] Com [facility] weight 2021-12-22 11:30:00 160.0 [lb_av] Co mmon [facility] temperature 2021-12-22 11:30:00 96.4 [degF] Com [facility] bmi 2021-12-22 11:30:00 27.46 kg/m2 Comm on [facility] oximetry 2021-12-22 11:30:00 95 % Commo n [facility] respiratory rate 2021-12-22 11:30:00 16 /min Common [facility] blood pressure systolic 2021-12-22 11:30:00 105 mm[Hg] Common [facility] blood pressure diastolic 2021-12-22 11:30:00 59 mm[Hg] Common [facility] height 2021-12-08 10:45:00 64.00 [in_i] Com [facility] weight 2021-12-08 10:45:00 160 [lb_av] Comm on [facility] bmi 2021-12-08 10:45:00 27.46 kg/m2 Comm on [facility] blood pressure systolic 2021-12-08 10:45:00 121 mm[Hg] Common [facility] blood pressure diastolic 2021-12-08 10:45:00 73 mm[Hg] [facility] height 2021-12-05 14:20:00 64 [in_i] Commo n [facility] weight 2021-12-05 14:20:00 160 [lb_av] Comm on [facility] bmi 2021-12-05 14:20:00 27.46 kg/m2 Comm on [facility] height 2021-06-01 10:40:00 64.00 [in_i] Com [facility] weight 2021-06-01 10:40:00 164.2 [lb_av] Co mmon [facility] temperature 2021-06-01 10:40:00 97.3 [degF] Com [facility] bmi 2021-06-01 10:40:00 28.18 kg/m2 Comm on [facility] oximetry 2021-06-01 10:40:00 95 % Commo n [facility] respiratory rate 2021-06-01 10:40:00 17 /min [facility] blood pressure systolic 2021-06-01 10:40:00 132 mm[Hg] [facility] blood pressure diastolic 2021-06-01 10:40:00 65 mm[Hg] [facility] Encounters Start Date/Time End Date/Time Encounter Type Admission Type Attending Clinicians Care Facility Care Department Encounter ID Source 2023-12-13 16:01:00 Outpatient Landin, Jasbir [facility] [id number] [facility] 2023-10-10 11:08:01 Outpatient Landin, Jasbir [facility] [id number] [facility] 2023-06-25 09:31:00 Outpatient Landin, Jasbir [facility] [id number] [facility] 2023-06-19 09:24:00 Outpatient Landin, Jasbir [facility] [id number] [facility] 2023-01-09 14:00:01 Outpatient Landin, Jasbir [facility] [id number] [facility] 2021-12-22 12:09:02 Outpatient Landin, Jasbir [facility] [id number] [facility] 2021-12-21 10:20:01 Outpatient Landin, Jasbir [facility] [id number] [facility] 2021-12-12 11:41:01 Outpatient Alndin, Jasbir [facility] [id number] [facility] 2021-12-06 10:14:00 Outpatient Landin, Jasbir [facility] [id number] [facility] 2021-12-05 09:31:00 Outpatient Landin, Jasbir [facility] [id number] [facility] 2021-09-21 13:51:01 [facility] [id number] [facility] 2021-09-21 13:50:15 Out[facility] Land[facility] [id number] [facility] 2021-09-21 12:46:59 Outpatient Landin[facility] [id number] [facility] 2021-09-21 12:12:17 Outpatient Landin[facility] [id number] [facility] 2021-09-21 12:09:34 Outpatient Landin, [facility] [id number] [facility] 2021-09-21 12:09:12 Outpatient Gisel Freitas [facility] [id number] [facility] 2021-09-21 12:04:46 [facility] [id number] [facility] 2021-09-21 12:00:14 Outpatient Gisel Freitas [facility] [id number] [facility] 2021-09-21 11:32:35 Outpatient Gisel Freitas [facility] [id number] [facility] 2024-05-05 00:00:00 2024-05-05 00:00:00 (TEL) [facility] [id number] [facility] 2024-04-21 00:00:00 2024-04-21 00:00:00 (TEL) [facility] ST[facility] [id number] [facility] 2024-02-19 12:00:00 2024-02-19 12:30:00 Care Coordinati on Non Billable Timmy Hallmankle [id number] [facility] 2024-02-01 21:30:00 2024-02-01 22:00:00 Care Odin De La Torre [id number]. [id number] [facility] 2024-02-01 00:00:00 2024-02-01 00:00:00 (TEL) [facility] [id number] [facility] 2024-01-15 00:00:00 2024-01-15 00:00:00 (TEL) [facility] [id number] [facility] 2024-01-02 00:00:00 2024-01-02 00:00:00 (TEL) [facility] [id number] [facility] 2023-12-26 00:00:00 2023-12-26 00:00:00 (TEL) [facility] [id number] [facility] 2023-12-20 00:00:00 2023-12-20 00:00:00 (WEB) [facility] [id number] [facility] 2023-12-17 00:00:00 2023-12-17 00:00:00 OFFICE VISIT ESTAB PT LEVEL 4 [facility] [id number] [facility] 2023-12-17 00:00:00 2023-12-17 00:00:00 SUB ANNUAL [facility] WELLNESS VISIT [facility] ST[facility]C [id number] [facility] 2023-11-14 00:00:00 2023-11-14 00:00:00 (TEL) [facility] [id number] [facility] 2023-11-07 19:00:00 2023-11-07 19:30:00 Palliative Care RN Guzman Boothe [id number]. [id number]. [id number] [facility] 2023-11-06 13:30:00 2023-11-06 14:30:00 Initial D2Me Estefania Teague 2.16.840. [id number] 2.16.840.1. [id number] [facility] 2023-06-27 00:00:00 2023-06-27 00:00:00 OFFICE VISIT ESTAB PT LEVEL 4 [facility] ST[facility] [id number] [facility] 2023-06-23 00:00:00 2023-06-23 00:00:00 Outpatient DMG DM [id number] [facility] 2023-06-19 00:00:00 2023-06-19 00:00:00 (TEL) STLMLC STL[facility]C [id number] [facility] 2023-05-28 00:00:00 2023-05-28 00:00:00 (TEL) [facility] [id number] [facility] 2023-04-09 00:00:00 2023-04-09 00:00:00 OFFICE VISIT ESTAB PT LEVEL 3 [facility] ST[facility]C [id number] [facility] 2023-04-07 00:00:00 2023-04-07 00:00:00 (WEB) [facility]C STL[facility]C [id number] [facility] 2023-02-14 00:00:00 2023-02-14 00:00:00 (WEB) [facility] ST[facility]C [id number] [facility] 2023-01-04 00:00:00 2023-01-04 00:00:00 (TEL) [facility]C STL[facility]C [id number] [facility] 2022-12-13 00:00:00 2022-12-13 00:00:00 OFFICE VISIT ESTAB PT LEVEL 4 [facility] [id number] [facility] 2022-12-13 00:00:00 2022-12-13 00:00:00 SUB ANNUAL [facility] WELLNESS VISIT STLMLC STLMLC [id number] [facility] 2022-07-21 00:00:00 2022-07-21 00:00:00 (TEL) STLMLC STLMLC [id number] [facility] 2022-07-17 00:00:00 2022-07-17 00:00:00 (TEL) STLMLC STLMLC [id number] [facility] 2022-05-30 00:00:00 2022-05-30 00:00:00 OFFICE VISIT ESTAB PT LEVEL 4 STLMLC STLMLC [id number] [facility] 2022-05-26 00:00:00 2022-05-26 00:00:00 (TEL) STLMLC STLMLC [id number] [facility] 2022-03-21 00:00:00 2022-03-21 00:00:00 (TEL) STLMLC STLMLC [id number] [facility] 2021-12-22 00:00:00 2021-12-22 00:00:00 (WELLNESS) Wellness Visit STLMLC STLMLC [id number] [facility] 2021-12-08 00:00:00 2021-12-08 00:00:00 OFFICE VISIT NEW PT LEVEL 3 STLMLC STLMLC [id number] [facility] 2021-12-07 00:00:00 2021-12-07 00:00:00 (TEL) STLMLC STLMLC [id number] [facility] 2021-12-05 00:00:00 2021-12-05 00:00:00 (TEL) STLMLC STLMLC [id number] [facility] 2021-12-05 00:00:00 2021-12-05 00:00:00 OFFICE VISIT ESTAB PT LEVEL 4 STLMLC STLMLC [id number] [facility] 2021-09-15 00:00:00 2021-09-15 00:00:00 (TEL) STLMLC STLMLC [id number] [facility] 2021-08-23 00:00:00 2021-08-23 00:00:00 (TEL) STLMLC STLMLC [id number] [facility] 2021-06-01 00:00:00 2021-06-01 00:00:00 OFFICE VISIT ESTAB PT LEVEL 4 STLMLC STLMLC [id number] [facility] 2021-05-31 00:00:00 2021-05-31 00:00:00 (TEL) STLMLC STLMLC [id number] [facility] 2021-05-17 00:00:00 2021-05-17 00:00:00 Outpatient STLMLC STLMLC [id number] [facility] 2021-05-12 00:00:00 2021-05-12 00:00:00 Outpatient STLMLC STLMLC [id number] [facility] 2021-04-19 00:00:00 2021-04-19 00:00:00 Outpatient STLMLC STLMLC [id number] [facility] 2021-04-14 00:00:00 2021-04-14 00:00:00 Outpatient STLMLC STLMLC [id number] [facility] 2021-04-13 00:00:00 2021-04-13 00:00:00 Outpatient STLMLC STLMLC [id number] [facility] 2020-12-02 00:00:00 2020-12-02 00:00:00 Outpatient STLMLC STLMLC [id number] [facility] 2020-12-02 00:00:00 2020-12-02 00:00:00 Outpatient STLMLC STLMLC [id number] [facility] 2020-07-28 00:00:00 2020-07-28 00:00:00 Outpatient STLMLC STLMLC [id number] [facility] 2020-07-08 00:00:00 2020-07-08 00:00:00 Outpatient STLMLC STLMLC [id number] [facility] 2020-06-24 00:00:00 2020-06-24 00:00:00 Outpatient STLMLC STLMLC [id number] [facility] 2020-06-23 00:00:00 2020-06-23 00:00:00 Outpatient STLMLC STLMLC [id number] [facility] 2020-06-23 00:00:00 2020-06-23 00:00:00 Outpatient STLMLC STLMLC [id number] [facility] 2020-06-02 00:00:00 2020-06-02 00:00:00 Outpatient STLMLC STLMLC [id number] [facility] 2020-05-24 00:00:00 2020-05-24 00:00:00 Outpatient STLMLC STLMLC [id number] [facility] 2020-05-19 00:00:00 2020-05-19 00:00:00 Outpatient STLMLC STLMLC [id number] [facility] 2020-05-19 00:00:00 2020-05-19 00:00:00 Outpatient STLMLC STLMLC [id number] [facility] 2020-03-18 01:27:00 2020-03-18 01:27:00 [facility] [id number] [facility] 2020-03-17 10:00:00 2020-03-17 10:00:00 [facility] [id number] [facility] 2019-12-11 10:00:00 2019-12-11 10:00:00 [facility] [id number] [facility] 2019-06-11 10:00:00 2019-06-11 10:00:00 [facility] [id number] [facility] 2019-05-27 11:20:00 2019-05-27 11:20:00 Outpatient Radha cheung [facility] [id number] [facility] Results Test Description Test Time Test Comments Results Result Co mments Source
[2024-05-09] MEDS ORDERED: NA CHLORIDE 0.9% 0 ML ONE (22:27)
[2024-05-10] MEDS ORDERED: HYDROMORPHONE HCL 0.5 MG/0.5 ML INJ ONE ×2 (00:47→02:53)
--- NOTE | 2024-05-10 02:42 | ER ---
Nurse's Notes [facility] Name: Wendy Maria Age: 83 yrs Sex: Female : 1940 Arrival Date: 05/09/2024 Time: 21:54 Bed 24 Private MD: Diagnosis: Acute respiratory failure;Acute hypoxemic respiratory failure, Beaverton's disease, physical debility, bladder outlet obstruction, acute urinary retention, acute hemorrhage into urinary bladder, urinary bladder clot Presentation: 05/09 22:36 Chief complaint: Patient's son or daughter states: changed ruhsing cath today but she has bm8 had zero output all day. She is on hospice and we just want this fixed. Coronavirus screen: At this time, the client does not indicate any symptoms associated with coronavirus-19. Ebola Screen: Patient negative for fever greater than or equal to 101.5 degrees Fahrenheit, and additional compatible Ebola Virus Disease symptoms Patient denies exposure to infectious person. Patient denies travel to an Ebola-affected area in the 21 days before illness onset. No symptoms or risks identified at this time. Initial Sepsis Screen: Does the patient meet any 2 criteria? Systolic BP < 90 mmHg. Mean Arterial Pressure (MAP) < 65. Altered Mental Status. Yes Does the patient have a suspected source of infection? No. Patient's initial sepsis screen is negative. Risk Assessment: Do you want to hurt yourself or someone else? Patient reports no desire to harm self or others. Onset of symptoms was May 09, 2024 at 09:00. 22:36 Method Of Arrival: EMS: [facility] bm8 22:36 Acuity: RICHARD 3 bm8 Triage Assessment: 22:40 General: Appears distressed, uncomfortable, Behavior is calm, cooperative, appropriate bm8 for age. Pain: Complains of pain in groin and suprapubic area. EENT: No deficits noted. No signs and/or symptoms were reported regarding the EENT system. Neuro: No deficits noted. Level of Consciousness is awake, alert, obeys commands, Oriented to person, place, time, situation, Appropriate for age. Cardiovascular: Capillary refill < 3 seconds. Respiratory: Airway is patent Respiratory effort is even, unlabored, Respiratory pattern is regular, symmetrical. GI: Abdomen is round distended. : Parent/caregiver report the patient having rushing bag not draining since 0900. Derm: No signs and/or symptoms reported regarding the dermatologic system. Musculoskeletal: 22:40 Musculoskeletal: No signs and/or symptoms reported regarding the musculoskeletal system.bm8 Historical: - Allergies: 22:40 NKDA; bm8 - Home Meds: 22:40 Seroquel Oral [Active]; Zoloft Oral [Active]; bm8 - PMHx: 22:40 Dementia; Beaverton's; bm8 - PSHx: 22:40 hip replacement; Left; bm8 - Immunization history:: Adult Immunizations up to date. - Infectious Disease History:: Denies. - Social history:: Smoking status: Patient denies any tobacco usage or history of. - Family history:: not pertinent. Screenin:44 [facility] ED Fall Risk Assessment (Adult) History of falling in the last 3 months, bm8 including since admission Yes- fall prone (multiple falls) (3 pts) Confusion or Disorientation Yes (5 pts) Intoxicated or Sedated No (0 pts) Impaired Gait Yes (1 pt) Mobility Assist Device Used Yes (1 pt) Altered Elimination Yes (1 pt) Score/Fall Risk Level 3 or more points = High Risk Oriented to surroundings, Maintained a safe environment, Educated pt \T\ family on fall prevention, incl call for assistance when getting out of bed, Assessed \T\ reinforced patient's understanding of fall precautions, Hourly rounding (assess needs \T\ fall precautionary measures) done, Used ambulatory aids as needed (educated on \T\ assisted with), Used gait belt as appropriate Implemented a Fall Risk Plan of Care. Abuse screen: Denies threats or abuse. Nutritional screening: No deficits noted. Tuberculosis screening: No symptoms or risk factors identified. Assessment: 05/10 00:24 Reassessment: Patient appears in no apparent distress at this time. Patient and/or bm8 family updated on plan of care and expected duration. Pain level reassessed. Patient is alert, oriented x 3, equal unlabored respirations, skin warm/dry/pink. 01:47 Reassessment: family has chosen to withdrawal all care from pt except for comfort bm8 measures. Rushing cath was DC per family request. 02:40 Neuro: Marte Agitation-Sedation Scale (RASS): +2 Agitated Level of Consciousness is lg3 confused. 02:40 General: Appears uncomfortable. Derm: Skin is diaphoretic, Skin is pale. lg3 04:20 General: Appears uncomfortable. Neuro: Marte Agitation-Sedation Scale (RASS): +2 lg3 Agitated Level of Consciousness is confused. 06:08 [facility] vc1 07:21 General: [facility] home at bedside for transfer. lg3 Vital Signs: 05/09 22:36 BP 78 / 54; Pulse 115; Resp 16; Temp 96.8; Pulse Ox 95% on R/A; Weight 68.5 kg; Height bm8 5 ft. 8 in. ; 05/10 00:24 BP 58 / 45; Pulse 116; Resp 20; Temp 96.8; Pulse Ox 99% on 2 lpm NC; bm8 01:47 bm8 05:14 Pulse 0; Resp 0; lg3 05/09 22:36 Body Mass Index 22.96 (68.50 kg, 172.72 cm) bm8 01:47 family has declined further vital signs monitoring. bm8 Rivera Coma Score: 05:23 Eye Response: spontaneous(4). Motor Response: obeys commands(6). Verbal Response: sp4 oriented(5). Total: 15. ED Course: 05/09 22:06 Patient arrived in ED. lg3 22:08 Praomd Gutiérrez MD is Attending Physician. sp4 22:36 Vadim Hardy, RN is Primary Nurse. bm8 22:40 Triage completed. bm8 22:40 Arm band placed on right wrist. bm8 22:44 Patient has correct armband on for positive identification. Placed in gown. Bed in low bm8 position. Call light in reach. Side rails up X2. Adult w/ patient. Client placed on continuous cardiac and pulse oximetry monitoring. NIBP monitoring applied. Pulse ox on. NIBP on. Door closed. Noise minimized. Warm blanket given. Head of bed. 22:44 No provider procedures requiring assistance completed. Maintain EMS IV. Dressing bm8 intact. Good blood return noted. Site clean \T\ dry. Gauge \T\ site: 20g lac. Flushed with 10 mL NS. Patient maintains SpO2 saturation greater than 95% on room air. 23:56 CT Abd/Pelvis - Without Contrast In Process Unspecified. EDMS 05/10 00:26 Rushing cath removed intact. IV discontinued, intact, bleeding controlled, No bm8 redness/swelling at site. Pressure dressing applied. 00:28 Rushing cath inserted, using sterile technique, 16 Fr., by me, to gravity drainage, urine bm8 specimen collected. other pt drained about 50 ml when inserted and never got any thing else out. 01:47 Provided Education on:. bm8 05:18 Pramod Gutiérrez MD is Pronouncing Provider. sp4 Administered Medications: 00:52 Drug: HYDROmorphone IM 0.5 mg IM once Route: IM; Site: right deltoid; vc1 06:10 Follow up: Response: Marked relief of symptoms vc1 03:00 Drug: HYDROmorphone IM 0.5 mg IM once Route: IM; Site: left vastus lateralis; lg3 06:10 Follow up: Response: Marked relief of symptoms vc1 04:29 Drug: HYDROmorphone IM 1 mg IM once Route: IM; Site: right deltoid; vc1 06:10 Follow up: Response: Marked relief of symptoms vc1 Medication: 00:26 VIS not applicable for this client. bm8 Outcome: 02:41 Discharge ordered by . sp4 05:35 Patient : Time of 05:14 Pronounced by Pramod Gutiérrez MD vc1 05:35 Condition: 05:35 Instructed on Family given information on after life care. 07:22 Patient left the ED. lg3 Signatures: Dispatcher [employer] EDND Marissa Torres RN RN lg3 Heidi Lopes RN RN vc1 Potepalov, Sergey, MD MD sp4 Vadim Hardy RN RN bm8 Corrections: (The following items were deleted from the chart) 01:48 00:24 GCS: 15, bm8 bm8 03:08 02:40 Neuro: Marte Agitation-Sedation Scale (RASS): +2 Agitated Level of lg3 Consciousness is confused, lg3
--- NOTE | 2024-05-10 02:42 | EDPHYS ---
Physician Documentation [facility] Name: Wendy Maria Age: 83 yrs Sex: Female : 1940 Arrival Date: 05/09/2024 Time: 21:54 Bed 24 Private MD: ED Physician Pramod Gutiérrez HPI: 05/09 22:08 This 83 yrs old Female presents to ER via Unassigned with complaints of sp4 abdominal distension . 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 Patient is in moderate distress secondary to urinary bladder distention. Has Lee catheter in place on arrival. Catheter is not draining. 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 - Infectious Disease History:: Denies. - Social history:: Smoking status: Patient denies any tobacco usage or history of. - Family history:: not pertinent. ROS: 05/10 05:23 Constitutional: Negative for fever, chills, and weight loss, positive urinary sp4 distention , positive urinary bladder pain Eyes: Negative for injury, pain, redness, and discharge, All other systems are negative, Exam: 05:23 Constitutional: This is a well developed, ill-appearing pale female currently sp4 bedbound, toxic appearing and hypotensive on arrival, Lee catheter present on arrival Head/Face: Normocephalic, atraumatic. Eyes: Pupils equal round and reactive to light, extra-ocular motions intact. Lids and lashes normal. Conjunctiva and sclera are not injected. Cornea within normal limits. Periorbital areas with no swelling, redness, or edema. ENT: Nares patent. No nasal discharge, no septal abnormalities noted. Tympanic membranes are normal and external auditory canals are clear. Oropharynx with no redness, swelling, or masses, exudates, or evidence of obstruction, uvula midline. Mucous membranes moist. Neck: Trachea midline, no thyromegaly or masses palpated, and no cervical lymphadenopathy. Supple, full range of motion without nuchal rigidity, or vertebral point tenderness. Chest/axilla: Normal chest wall appearance and motion. Nontender with no deformity. No lesions are appreciated. Cardiovascular: Regular rate and rhythm with a normal S1 and S2. No gallops, murmurs, or rubs. Normal PMI, no JVD. No pulse deficits. Respiratory: Lungs have equal breath sounds bilaterally, clear to auscultation and percussion. No rales, rhonchi or wheezes noted. No increased work of breathing, no retractions or nasal flaring. Abdomen/GI: Soft, with normal bowel sounds. No distension or tympany. No guarding or rebound. No evidence of tenderness throughout. Back: No spinal tenderness. No costovertebral tenderness. Female : Normal external genitalia. Indwelling Lee catheter that is nondraining Skin: Warm, dry with normal turgor. Pale on arrival and diaphoretic MS/ Extremity: Pulses equal, no cyanosis. Neurovascular intact. Full, normal range of motion. Neuro: Awake and alert, GCS 15, generalized physical debility, patient is moving all extremities Vital Signs: 05/09 22:36 BP 78 / 54; Pulse 115; Resp 16; Temp 96.8; Pulse Ox 95% on R/A; Weight 68.5 kg; Height bm8 5 ft. 8 in. ; 05/10 00:24 BP 58 / 45; Pulse 116; Resp 20; Temp 96.8; Pulse Ox 99% on 2 lpm NC; bm8 01:47 bm8 05:14 Pulse 0; Resp 0; lg3 05/09 22:36 Body Mass Index 22.96 (68.50 kg, 172.72 cm) bm8 01:47 family has declined further vital signs monitoring. bm8 Rivera Coma Score: 05:23 Eye Response: spontaneous(4). Motor Response: obeys commands(6). Verbal Response: sp4 oriented(5). Total: 15. MDM: 05/09 22:12 Patient medically screened. sp4 05/10 01:06 Special discussion: EXAM DESCRIPTION: Abdomen Pelvis Wo Contrast CLINICAL HISTORY: 83 sp4 years Female Distended bladder. COMPARISON: CTAbdomen pelvis 04/20/2024. TECHNIQUE: Images were obtained in axial, coronal and sagittal planes. No contrast administration. This exam was performed according to our departmental dose-optimization program which includes use of Automated Exposure Control, adjustment of the mA and/or kV according to patient size and/or use of iterative reconstruction technique. FINDINGS: No abnormality involving the liver, spleen, pancreas, and adrenal glands bilaterally. Prior cholecystectomy. Moderate-sized hiatal hernia. No obstructing renal or ureteral calculi bilaterally. No hydronephrosis bilaterally. Marked bladder distention with abnormal mucosal thickening involving the bladder and possible intramural emphysematous change. Increased attenuation within the posterior bladder with fluid levels seen. If there is no history of recent contrast administration, the findings are suspicious for extensive blood products and hematuria. No extravasation of urine or blood products identified. The bladder measures 14.5 x 11.8 x 14.2 cm. Possible subcutaneous emphysema anterior pelvic wall. Appendix not well identified however no secondary signs for appendicitis. Moderate constipation. No bowel obstruction, perforation, or inflammation. Left total hip prosthesis. No acute osseous abnormality. Small bilateral pleural effusions. Airspace attenuation lower lungs bilaterally. Small pericardial effusion. IMPRESSION: 1. Markedly abnormal appearing bladder with marked bladder distention as well as abnormal mucosal thickening involving the bladder and possible intramural emphysematous change. Increased attenuation within the posterior bladder with fluid levels seen. If there is no history of recent contrast administration, the findings are suspicious for extensive blood products and hematuria. Underlying bladder neoplasm should be excluded. Posttraumatic change is also a consideration. No extravasation of urine or blood products identified. 2. Moderate constipation. 3. Small bilateral pleural effusions with infiltrate and atelectatic change versus pulmonary congestion. Electronically signed by: Diana Templeton MD 05/10/2024 12:55 AM CDT RP . 02:39 ED course: CT revealed - IMPRESSION: 1. Markedly abnormal appearing bladder with marked sp4 bladder distention as well as abnormal mucosal thickening involving the bladder and possible intramural emphysematous change. Increased attenuation within the posterior bladder with fluid levels seen. If there is no history of recent contrast administration, the findings are suspicious for extensive blood products and hematuria. Underlying bladder neoplasm should be excluded. Posttraumatic change is also a consideration. No extravasation of urine or blood products identified. 2. Moderate constipation. 3. Small bilateral pleural effusions with infiltrate and atelectatic change versus pulmonary congestion. Electronically signed by: Diana Templeton MD 05/10/2024 12:55 AM CDT. 05:28 Differential Diagnosis altered mental status, sepsis, flu. Data reviewed: vital signs, sp4 nurses notes, old medical records, radiologic studies, CT scan. 05/09 23:01 Order name: CT Abd/Pelvis - Without Contrast sp4 05/09 22:12 Order name: Lee; Complete Time: 00:24 sp4 Administered Medications: 00:52 Drug: HYDROmorphone IM 0.5 mg IM once Route: IM; Site: right deltoid; vc1 06:10 Follow up: Response: Marked relief of symptoms vc1 03:00 Drug: HYDROmorphone IM 0.5 mg IM once Route: IM; Site: left vastus lateralis; lg3 06:10 Follow up: Response: Marked relief of symptoms vc1 04:29 Drug: HYDROmorphone IM 1 mg IM once Route: IM; Site: right deltoid; vc1 06:10 Follow up: Response: Marked relief of symptoms vc1 Disposition: 05:18 . sp4 05:18 . sp4 Disposition Summary: 05/10/24 05:19 Patient Notes: We recommend to resume Hospice Location: Home(05/10/24 05:19) sp4 Pronouncing Physician: Pramod Gutiérrez spChelo Time of : 05:14 05/10/2024 sp4 Diagnosis - Acute respiratory failure sp4 - Acute hypoxemic respiratory failure, Ventura's disease, physical debility, sp4 bladder outlet obstruction, acute urinary retention, acute hemorrhage into urinary bladder, urinary bladder clot Signatures: Dispatcher [employer] EDMS Marissa Torres RN RN lg3 Heidi Lopes RN RN vc1 Pramod Gutiérrez MD MD sp4 Vadim Hardy, RN RN bm8 Corrections: (The following items were deleted from the chart) 05:18 02:41 Home sp4 sp4 05:18 02:41 new sp4 sp4 05:18 02:41 have improved sp4 sp4 05:18 02:41 Stable sp4 sp4 05:18 02:41 Urinary bladder clot, urinary bladder distention, hypertension, deconditioning, sp4 acute urinary retention sp4
[2024-05-10] MEDS ORDERED: HYDROMORPHONE HCL 1 MG/ML INJ ONE (04:24)
[2024-05-10 07:30] VITALS: TEMP 96.8
[2024-05-10 07:32] VITALS: BP 58/45; O2SAT 99
--- NOTE | 2024-05-12 10:17 | RAD REPORT ---
EXAM DESCRIPTION: CT - Abdomen Pelvis Wo Contrast - 05/10/2024 7:06 am CLINICAL HISTORY: 83 years Female Distended bladder. COMPARISON: CT Abdomen pelvis 04/20/2024. TECHNIQUE: Images were obtained in axial, coronal and sagittal planes. No contrast administration. T his exam was performed according to our departmental dose-optimization program which includes use of Automated Exposure Control, adjustment of the mA and/or kV according to patient size and/or use of it erative reconstruction technique. FINDINGS: No abnormality involving the liver, spleen, pancreas, and adrenal glands bilaterally. Prio r cholecystectomy. Moderate-sized hiatal hernia. No obstructing renal or ureteral calculi bilaterally. No hydronephrosis bilaterally. Marked bladder d istention with abnormal mucosal thickening involving the bladder and possible intramural emphysematou s change. Increased attenuation within the posterior bladder with fluid levels seen. If there is no h istory of recent contrast administration, the findings are suspicious for extensive blood products an d hematuria. No extravasation of urine or blood products identified. The bladder measures 14.5 x 11.8 x 14.2 cm. Possible subcutaneous emphysema anterior pelvic wall. Appendix not well identified however no secondary signs for appendicitis. Moderate constipation. No b owel obstruction, perforation, or inflammation. Left total hip prosthesis. No acute osseous abnormality. Small bilateral pleural effusions. Airspace attenuation lower lungs bilaterally. Small pericardial ef fusion. IMPRESSION: 1. Markedly abnormal appearing bladder with marked bladder distention as well as abnor mal mucosal thickening involving the bladder and possible intramural emphysematous change. Increased attenuation within the posterior bladder with fluid levels seen. If there is no history of recent con trast administration, the findings are suspicious for extensive blood products and hematuria. Underly ing bladder neoplasm should be excluded. Posttraumatic change is also a consideration. No extravasati on of urine or blood products identified. 2. Moderate constipation. 3. Small bilateral pleural effusions with infiltrate and atelectatic change versus pulmonary conges tion. Electronically signed by: Diana Templeton MD 05/10/2024 12:55 AM CDT Due to temporary technical issues with the PACS/Fluency reporting system, reports are being signed by the in house radiologist without review as a courtesy to ensure prompt reporting. The interpreting r adiologist is fully responsible for the content of the report.
== END 2024-05-10 07:22 | disposition expired ==
LOC: ER 21:54
DX: J96.01 Acute respiratory failure with hypoxia (principal); F03.90 Unspecified dementia, unspecified severity, without behavioral disturbance, psychotic disturbance, mood disturbance, and anxiety; G10 Huntington's disease; R53.81 Other malaise; T83.091A Other mechanical complication of indwelling urethral catheter, initial encounter; N32.89 Other specified disorders of bladder; Z86.711 Personal history of pulmonary embolism; Z96.642 Presence of left artificial hip joint
CPT/HCPCS: 74176; 51702; 96372; 99285; J1170 ×3; J7030